=== PATIENT | male | born 1960 | race Caucasian/White ===

== ENCOUNTER 2016-12-05 01:16 | Emergency (ER) | payer SELFPAY ==
[2016-12-05] MEDS ORDERED: DIPHENHYDRAMINE HCL 50 MG/ML VIAL IM ONE (01:39)
[2016-12-05] MEDS ORDERED: LORAZEPAM INJ 2 MG/1 ML VIAL IV ONE (01:39)
[2016-12-05] MEDS ORDERED: HALOPERIDOL LACTATE INJ 5 MG/1 ML VIAL IM ONE (01:41)
--- NOTE | 2016-12-05 01:58 | ER Document Report ---
ED General - General Stated Complaint: PSYCH PROBLEM Mode of Arrival: Ambulatory Information source: Patient, Law Enforcement Cannot obtain history due to: Uncooperative, Altered mental status Notes: This is a 56-year-old male with a history of alcohol and substance abuse who presents via law enforcement. Reportedly the patient was combative prior to arrival and also threatening suicide with a loaded gun. History is limited secondary to lack of patient cooperation. Chart review reveals prior visits for alcohol intoxication, withdrawal, and prior IVC events. TRAVEL OUTSIDE OF THE [place] IN LAST 30 DAYS: No - Related Data Allergies/Adverse Reactions: Iodinated Contrast Media - Oral and [IV Dye, Iodine Containing] Allergy (Mild, Verified 06/07/16 10:41) Hives Penicillins Allergy (Unknown, Verified 06/07/16 10:41) Unknown reaction Past Medical History - Social History Smoking Status: Unknown if Ever Smoked Frequency of alcohol use: Heavy Drug Abuse: Other - unknown Family History: Reviewed & Not Pertinent, CAD - Father with AL at 86 years old. Pulmonary Medical History: Reports: Hx Bronchitis Neurological Medical History: Reports: Hx Seizures - From alcohol abuse from DTs Endocrine Medical History: Reports: Hx Hypothyroidism GI Medical History: Reports: Hx Gastroesophageal Reflux Disease, Hx Ulcer Musculoskeltal Medical History: Psychiatric Medical History: Reports: Hx Anxiety, Hx Depression Traumatic Medical History: Reports: Hx Fractures Past Surgical History: Reports: Hx Appendectomy - 1974 - Immunizations Hx Diphtheria, Pertussis, Tetanus Vaccination: Yes Review of Systems - Review of Systems -: Yes ROS unobtainable due to patient's medical condition Physical Exam - Vital signs Vitals: Temp Pulse Resp BP Pulse Ox 97.3 F 88 17 117/83 99 12/05/16 01:26 12/05/16 01:26 12/05/16 01:26 12/05/16 01:26 12/05/16 01:26 - Notes Notes: PHYSICAL EXAMINATION: GENERAL: Alert, agitated and angry, yelling expletives at law enforcement HEAD: Atraumatic, normocephalic. EYES: Pupils equal round and reactive to light, extraocular movements intact, sclera anicteric ENT: Moist mucous membranes. NECK: Normal range of motion, supple without lymphadenopathy LUNGS: Breath sounds clear to auscultation bilaterally and equal. No wheezes rales or rhonchi. HEART: Regular rate and rhythm without murmurs ABDOMEN: Soft, nontender, normoactive bowel sounds. No guarding, no rebound. No masses appreciated. EXTREMITIES: Normal range of motion NEUROLOGICAL: Cranial nerves grossly intact. Normal speech. Exam limited by patient cooperation, no obvious focal motor deficits. PSYCH: agitated and angry, not cooperative, thrashing and combative. Course - Re-evaluation Re-evalutation: 12/05/16 04:47 Patient initially presented via law enforcement and was combative and certainly appeared to be a danger to himself, not allowing evaluation and not cooperating with verbal instructions. As such, in order to ensure his own safety, he was initially placed in physical restraints. Medication administered for agitation (benadryl, ativan, haldol) with good response, pt resting comfortably and restraints were removed. He remained hemodynamically stable. Labs significant for alcohol intoxication. Still awaiting urine for UA and UDS. Pt medically stable and will be evaluated by mental health team later this morning. - Vital Signs Vital signs: Temp Pulse Resp BP Pulse Ox 97.3 F 88 17 117/83 99 12/05/16 01:26 12/05/16 01:26 12/05/16 01:26 12/05/16 01:26 12/05/16 01:26 - Laboratory Result Diagrams: 12/05/16 01:50 12/05/16 01:50 Laboratory results interpreted by me: 12/05/16 12/05/16 01:50 01:50 RDW 14.2 H Seg Neutrophils % 40.8 L Lymphocytes % 49.9 H Sodium 152.7 H Anion Gap 21 H Total Protein 8.4 H Albumin 5.1 H Salicylates < 1.0 L Acetaminophen < 10 L Serum Alcohol 316 H* Discharge - Discharge Clinical Impression: Suicidal ideation, Hypernatremia Alcohol intoxication Qualifiers: Complication of substance-induced condition: with unspecified complication Qualified Code(s): F10.129 - Alcohol abuse with intoxication, unspecified Condition: Stable Disposition: PSYCH HOSP/UNIT
[2016-12-05 02:03] LABS: ABSOLUTE BASOPHILS # (AUTO) 0.1 10^3/uL (0.0-0.2); ABSOLUTE EOSINOPHILS # (AUTO) 0.2 10^3/uL (0.0-0.6); ABSOLUTE LYMPHOCYTES (AUTO) 3.4 10^3/uL (0.5-4.7); ABSOLUTE MONOCYTES (AUTO) 0.3 10^3/uL (0.1-1.4); ABSOLUTE NEUT (AUTO) 2.8 10^3/uL (1.7-8.2); BASOPHILS % (AUTO) 0.7 % (0-2); EOSINOPHILS % (AUTO) 3.6 % (0-6); HEMATOCRIT 46.1 % (37.9-51.0); HGB HCT DIFFERENCE 1.9; LYMPHOCYTES % (AUTO) 49.9 % (13-45); MEAN CORPUSCULAR HEMOGLOBIN 32.4 pg (27.0-33.4); MEAN CORPUSCULAR HGB CONC 34.8 g/dL (32.0-36.0); MEAN CORPUSCULAR VOLUME 93 fl (80-97); RED BLOOD COUNT 4.94 10^6/uL (4.35-5.55); RED CELL DISTRIBUTION WIDTH 14.2 % (11.5-14.0); SEGMENTED NEUTROPHILS % (AUTO) 40.8 % (42-78); WHITE BLOOD COUNT 6.8 10^3/uL (4.0-10.5)
[2016-12-05 02:21] LABS: ALANINE AMINOTRANSFERASE 31 U/L (21-72); ALBUMIN 5.1 g/dL (3.5-5.0); ALKALINE PHOSPHATASE 61 U/L (38-126); ASPARTATE AMINO TRANSFERASE 30 U/L (17-59); BILIRUBIN,DIRECT 0.4 mg/dL (0.0-0.4); BILIRUBIN,TOTAL 0.5 mg/dL (0.2-1.3); BLOOD UREA NITROGEN 16 mg/dL (7-20); CALCIUM 10.2 mg/dL (8.4-10.2); CREATININE RESULT 1.09 mg/dL (0.52-1.25); GLUCOSE 92 mg/dL (75-110); TOTAL PROTEIN 8.4 g/dL (6.3-8.2)
[2016-12-05 02:31] LABS: CARBON DIOXIDE 25 mmol/L (22-30); CHLORIDE 107 mmol/L (98-107); POTASSIUM 4.1 mmol/L (3.6-5.0); SODIUM 152.7 mmol/L (137-145)
[2016-12-05 02:32] LABS: ANION GAP 21 (5-19)
[2016-12-05 02:33] LABS: ALCOHOL 316 mg/dL (NONE DETECTED)
--- NOTE | 2016-12-05 08:30 | EKG REPORT ---
SEVERITY:- BORDERLINE ECG - SINUS RHYTHM NONSPECIFIC ST-T CHANGES LATERAL LEADS : Confirmed by: Santos Enriquez MD 05-Dec-2016 08:29:46
--- NOTE | 2016-12-05 11:09 | ER Document Report ---
Doctor's Note Notes: 12/05/16 11:07 Medical rounds: Chart reviewed and patient interviewed briefly. Patient denies somatic complaints. Vital signs are stable. Laboratory values normal except for elevated alcohol levels. Patient is alert, oriented, and coherent. He is medically stable pending evaluation by psych.
[2016-12-05 12:04] LABS: APPEARANCE,URINE CLEAR; BILIRUBIN,URINE NEGATIVE (NEGATIVE); GLUCOSE, URINE NEGATIVE (NEGATIVE); KETONES,URINE NEGATIVE (NEGATIVE); LEUKOCYTE ESTERASE,URINE NEGATIVE (NEGATIVE); NITRITE,URINE NEGATIVE (NEGATIVE); PROTEIN,URINE NEGATIVE (NEGATIVE); UROBILINOGEN,URINE NEGATIVE mg/dL (<2.0)
[2016-12-05 12:21] LABS: URINE BARBITURATES SCREEN NEGATIVE; URINE METHADONE SCREEN NEGATIVE; URINE OPIATES LOW NEGATIVE; URINE PHENCYCLIDINE SCREEN NEGATIVE
--- NOTE | 2016-12-06 10:06 | ER Document Report ---
Doctor's Note Notes: 12/06/16 10:05 As the rounding physician this AM, I assessed the patient's labs, vitals, and records. No concerning findings this morning. Patient denies any acute complaints. Patient is cleared for disposition by psychiatry 12/06/16 10:06
--- NOTE | 2016-12-06 11:34 | PSYCHOLOGICAL NOTE ---
Psych Note - Psych Note Psych Note: This is a 56-year-old male with a history of alcohol and substance abuse who presents via law enforcement. Reportedly the patient was combative prior to arrival and also threatening suicide with a loaded gun. History is limited secondary to lack of patient cooperation. Chart review reveals prior visits for alcohol intoxication, withdrawal, and prior IVC events. Patient denies suicidal and homicidal ideation disclosing he was drinking. He continued to disclose "I wasn't doing anything." he then stated he only drinks occasionally. Patient has anxiety and "low thyroid." he denies any previous suicidal attempts. Patient is semi-alert and orientated to person, place. Mood is dysphoric with flat affect. Patient denies suicidal and homicidal ideation. Patient denies auditory and visual hallucinations; patient is not demonstrating behaviour what would be congruent to responding to internal stimuli. No delusions are noted. Thought process is organized and linear. converstaional speech is halting and low. Patient kept eyes closed throughout evaluation. Intellectual abilities appear to be within average range. Attention and concentration is poor. Insight, judgment, and impulse control is poor. 303.90 (F10.20) alcohol-related disorder; moderate per history Impression\\plan: Patient is recommended to continue under IVC. Patient is currently demonstrating minimal engagement with clinician. Patient has history of alcoholism resulting in multiple previous visits to this department. Patient will be reevaluated. Dr. Simmons was consulted on care and management of this patient. Attending physician is in agreement with recommendations and disposition.
--- NOTE | 2016-12-06 11:42 | PSYCHOLOGICAL NOTE ---
Psych Note - Psych Note Psych Note: This is a 56-year-old male with a history of alcohol and substance abuse who presents via law enforcement. Reportedly the patient was combative prior to arrival and also threatening suicide with a loaded gun. History is limited secondary to lack of patient cooperation. Chart review reveals prior visits for alcohol intoxication, withdrawal, and prior IVC events. Patient disclosed that he has been fighting alcoholism and that he was 9 months sober but relapsed. (Clinician notes patient was seen approximate 6 months ago for alcohol intoxication). Patient disclosed that he has been not attending AA every day like he should. He continued disclosed that he does see Dr. Medeiros in [place], [place]. He continued disclosed that he does take care of his parents and knows he needs to stay sober. He continued just disclose that he knows he said and did things that were "inappropriate" while he was drinking but has little memory of what happened. Patient is alert and orientated to person, place, time and circumstance. Mood is euthymic with congruent affect. Patient denies suicidal and homicidal ideation. Patient denies auditory and visual hallucinations; patient is not demonstrating behaviour what would be congruent to responding to internal stimuli. No delusions are noted. Thought process is organized and linear. Conversational speech was within normal rate tone and prosody. Eye contact was well maintained. Intellectual abilities appear to be within average range. Attention and concentration is good. Insight, judgment, and impulse control is fair. 303.90 (F10.20) alcohol-related disorder; moderate per history Impression\\plan: Patient is recommended for rescind is considered psychiatrically cleared for discharge. Patient has a long history of alcoholism resulting in visits in this department; approximately 6 months reportedly sober. Patient disclosed that he had a relapse and obviously did and said things that were "inappropriate." Patient disclosed he uses AA to assist with sobriety. Dr. Simmons was consulted on care and management of this patient. Attending physician is in agreement with recommendations and disposition.
[2016-12-06 13:12] VITALS: BP 136/82
== END 2016-12-06 13:14 | disposition home or self-care (01) ==
LOC: ER 01:16
DX: R45.851 Suicidal ideations (principal); E87.0 Hyperosmolality and hypernatremia; F10.129 Alcohol abuse with intoxication, unspecified; K21.9 Gastro-esophageal reflux disease without esophagitis; R45.1 Restlessness and agitation; E03.9 Hypothyroidism, unspecified; Z78.1 Physical restraint status; Z88.0 Allergy status to penicillin
CPT/HCPCS: 93005; 99285; 96372; 96374; 36415; 80307 ×4; 85025; 80053; 81001; 93010; J1200; J1630; J2060

== ENCOUNTER 2018-08-24 12:48 | Observation (INO) | payer SELFPAY ==
[2018-08-24] MEDS ORDERED: ASPIRIN 81 MG TABLET, CHEWABLE PO ONE (13:43)
--- NOTE | 2018-08-24 13:45 | ER Document Report ---
ED Medical Screen (RME) - General Chief Complaint: Chest Pressure Stated Complaint: CHEST PRESSURE Time Seen by Provider: 08/24/18 13:42 Mode of Arrival: Ambulatory Information source: Patient Notes: This is a 57-year-old man with a history of severe anxiety, alcohol and substance abuse who presents to the emergency room with retrosternal chest pressure on and off for the past few days. He states it has been worse lately. Patient does smoke cigarettes. He was concerned about his heart but he was not sure whether this is his anxiety peer he does want to avoid all narcotics given his history. TRAVEL OUTSIDE OF THE [place] IN LAST 30 DAYS: No - Related Data Allergies/Adverse Reactions: Iodinated Contrast- Oral and IV Dye [IV Dye, Iodine Containing] Allergy (Mild, Verified 08/24/18 12:50) Hives Penicillins Allergy (Unknown, Verified 08/24/18 12:50) Unknown reaction Past Medical History Pulmonary Medical History: Reports: Hx Bronchitis Neurological Medical History: Reports: Hx Seizures - From alcohol abuse from DTs Endocrine Medical History: Reports: Hx Hypothyroidism GI Medical History: Reports: Hx Gastroesophageal Reflux Disease, Hx Pancreatitis - 09/15, Hx Ulcer Musculoskeltal Medical History: Psychiatric Medical History: Reports: Hx Anxiety, Hx Depression Traumatic Medical History: Reports: Hx Fractures Past Surgical History: Reports: Hx Appendectomy - 1974 - Immunizations Hx Diphtheria, Pertussis, Tetanus Vaccination: Yes Physical Exam - Vital signs Vitals: Temp Pulse Resp BP Pulse Ox 97.9 F 72 16 137/86 H 100 08/24/18 13:01 08/24/18 13:01 08/24/18 13:01 08/24/18 13:01 08/24/18 13:01 Course - Vital Signs Vital signs: Temp Pulse Resp BP Pulse Ox 97.9 F 72 16 137/86 H 100 08/24/18 13:01 08/24/18 13:01 08/24/18 13:01 08/24/18 13:01 08/24/18 13:01
[2018-08-24 14:11] LABS: ABSOLUTE EOSINOPHILS # (AUTO) 0.1 10^3/uL (0.0-0.6); ABSOLUTE LYMPHOCYTES (AUTO) 1.6 10^3/uL (0.5-4.7); ABSOLUTE MONOCYTES (AUTO) 0.3 10^3/uL (0.1-1.4); ABSOLUTE NEUT (AUTO) 3.5 10^3/uL (1.7-8.2); BASOPHILS % (AUTO) 0.4 % (0-2); EOSINOPHILS % (AUTO) 2.1 % (0-6); HEMATOCRIT 43.5 % (37.9-51.0); LYMPHOCYTES % (AUTO) 28.6 % (13-45); MEAN CORPUSCULAR HEMOGLOBIN 33.2 pg (27.0-33.4); MEAN CORPUSCULAR HGB CONC 34.5 g/dL (32.0-36.0); MEAN CORPUSCULAR VOLUME 96 fl (80-97); MONOCYTES % (AUTO) 5.9 % (3-13); PLATELET COUNT 212 10^3/uL (150-450); RED BLOOD COUNT 4.52 10^6/uL (4.35-5.55); RED CELL DISTRIBUTION WIDTH 13.8 % (11.5-14.0); TOTAL CELLS COUNTED % (AUTO) 100 %; WHITE BLOOD COUNT 5.6 10^3/uL (4.0-10.5)
[2018-08-24 14:32] LABS: ALANINE AMINOTRANSFERASE 27 U/L (21-72); ALBUMIN 5.1 g/dL (3.5-5.0); ALKALINE PHOSPHATASE 53 U/L (38-126); ANION GAP 9 (5-19); ASPARTATE AMINO TRANSFERASE 31 U/L (17-59); BILIRUBIN,DIRECT 0.3 mg/dL (0.0-0.4); BILIRUBIN,TOTAL 0.4 mg/dL (0.2-1.3); BLOOD UREA NITROGEN 15 mg/dL (7-20); CALCIUM 10.1 mg/dL (8.4-10.2); CARBON DIOXIDE 28 mmol/L (22-30); CHLORIDE 98 mmol/L (98-107); CREATINE KINASE 195 U/L (55-170); GLUCOSE 100 mg/dL (75-110); POTASSIUM 4.5 mmol/L (3.6-5.0); SODIUM 135.4 mmol/L (137-145); TOTAL PROTEIN 7.9 g/dL (6.3-8.2)
[2018-08-24 14:45] LABS: TROPONIN I < 0.012 ng/mL
--- NOTE | 2018-08-24 15:16 | RADIOLOGY REPORT (SQ) ---
EXAM DESCRIPTION: CHEST SINGLE VIEW COMPLETED DATE/TIME: 08/24/2018 2:41 pm REASON FOR STUDY: chest pain COMPARISON: 06/10/2016 EXAM PARAMETERS: NUMBER OF VIEWS: One view. TECHNIQUE: Single frontal radiographic view of the chest acquired. RADIATION DOSE: NA LIMITATIONS: None. FINDINGS: LUNGS AND PLEURA: No opacities, masses or pneumothorax. No pleural effusion. MEDIASTINUM AND HILAR STRUCTURES: No masses. Contour normal. HEART AND VASCULAR STRUCTURES: Heart normal in size. Normal vasculature. BONES: No acute findings. HARDWARE: None in the chest. OTHER: No other significant finding. IMPRESSION: 1. No significant interval changes since the previous examination dated 06/10/2016. No acute findings. TECHNICAL DOCUMENTATION: JOB ID: [id number] [employer]- All Rights Reserved Reading location - IP/workstation name: [email or web address]
[2018-08-24 15:29] LABS: FREE T4 (FREE THYROXINE) 1.22 ng/dL (0.78-2.19)
[2018-08-24 15:30] LABS: FREE T3 3.52 pg/mL (2.77-5.27); THYROID STIMULATING HORMONE 2.09 uIU/mL (0.47-4.68)
[2018-08-24] MEDS ORDERED: CLONAZEPAM 1 MG TABLET PO ONE (16:45)
[2018-08-24] MEDS ORDERED: IPRATROPIUM/ALBUTEROL 0.5-2.5 MG/3 ML AMPUL NEB ONE (16:45)
[2018-08-24] MEDS ORDERED: ACETAMINOPHEN 650 MG SUPP.RECT PR PRN (18:20)
[2018-08-24] MEDS ORDERED: LEVALBUTEROL HCL NEB 0.63 MG/3 ML AMPUL NEB PRN (18:20)
[2018-08-24] MEDS ORDERED: ONDANSETRON HCL INJ/PF 4 MG/2 ML SDV IV PRN (18:20)
[2018-08-24] MEDS ORDERED: MORPHINE SULFATE 10 MG/ML INJ IV PRN (18:33)
--- NOTE | 2018-08-24 18:38 | EKG REPORT ---
SEVERITY:- NORMAL ECG - SINUS RHYTHM : Confirmed by: Beth Boykin MD 24-Aug-2018 18:36:58
--- NOTE | 2018-08-24 19:02 | PDOC H&P ---
History of Present Illness Admission Date/PCP: 08/24/18 18:35 Patient complains of: Chest pain History of Present Illness: KING ELIZALDE is a 57 year old male with history of anxiety, depression, history of heavy alcohol abuse stopped drinking 3 months ago chronic smoker came to the emergency room with complaints of chest pains on and off for the last 3-4 days. Chest pains worsen today according to the patient. Chest pain as per the patient retrosternal localized pain scale is 7 x 10 on and off pain lasting for a few minutes associated with nausea denies any sweating denies any headaches chest pain is easing off with taking rest came to the emergency room for further evaluation. He is also admitting he is under a lot of stress. He quit drinking 3 months ago went back to work and he is a heavy drinker before he had a hard time adjusting to the new job when the time he had alcohol in the last 3 months his glass of wine couple of days ago because of increasing stress and anxiety. Patient is also saying he is depressed agreed to see the psychiatrist while he was in the hospital. The workup was done by the ER physician he was given aspirin in the ER and troponins are normal and the EKG was normal so far. Medical consult was called for possible admission. Went to talk to the patient patient is looks mildly anxious not agitated and alert and awake communicating very well. Patient wants to be full code. Past Medical History Pulmonary Medical History: Reports: Bronchitis Neurological Medical History: Reports: Seizures - From alcohol abuse from DTs Endocrine Medical History: Reports: Hypothyroidism GI Medical History: Reports: Gastroesophageal Reflux Disease Psychiatric Medical History: Reports: Depression, General Anxiety Disorder Past Surgical History Past Surgical History: Reports: Appendectomy - 1974 Social History Smoking Status: Current Every Day Smoker Frequency of Alcohol Use: Rare Hx Recreational Drug Use: No Hx Prescription Drug Abuse: No - Advance Directive Resuscitation Status: Full Code Family History Family History: Reviewed & Not Pertinent, CAD - Father with CA at 86 years old. Parental Family History Reviewed: Yes - Family history of heart disease father has a CABG Children Family History Reviewed: Yes Sibling(s) Family History Reviewed.: Yes Medication/Allergy Home Medications: Venlafaxine HCl [Effexor 75 mg Tablet] 75 mg PO DAILY 12/05/16 Allergies/Adverse Reactions: Iodinated Contrast- Oral and IV Dye [IV Dye, Iodine Containing] Allergy (Mild, Verified 08/24/18 12:50) Hives Penicillins Allergy (Unknown, Verified 08/24/18 12:50) Unknown reaction Review of Systems Constitutional: ABSENT: fever(s), headache(s) Eyes: ABSENT: visual disturbances Ears: ABSENT: hearing changes Nose, Mouth, and Throat: ABSENT: sore throat Respiratory: ABSENT: cough, dyspnea, hemoptysis Gastrointestinal: PRESENT: nausea Neurological: ABSENT: abnormal gait, abnormal speech, confusion, dizziness, focal weakness, syncope Psychiatric: ABSENT: anxiety, depression, homidical ideation, suicidal ideation Physical Exam Vital Signs: Temp Pulse Resp BP Pulse Ox 97.9 F 72 12 139/93 H 100 08/24/18 13:01 08/24/18 13:01 08/24/18 16:01 08/24/18 16:01 08/24/18 16:01 Intake & Output 08/23/18 08/24/18 08/25/18 06:59 06:59 06:59 Weight 73.5 kg General appearance: PRESENT: no acute distress Head exam: PRESENT: atraumatic Eye exam: PRESENT: PERRLA Mouth exam: PRESENT: moist Neck exam: ABSENT: carotid bruit, JVD, lymphadenopathy, thyromegaly Respiratory exam: PRESENT: decreased breath sounds, wheezes GI/Abdominal exam: PRESENT: normal bowel sounds, soft. ABSENT: distended, guarding, mass, organolmegaly, rebound, tenderness Extremities exam: PRESENT: full ROM. ABSENT: calf tenderness, clubbing, pedal edema Neurological exam: PRESENT: alert, awake, oriented to person, oriented to place, oriented to time, oriented to situation, CN II-XII grossly intact. ABSENT: motor sensory deficit Psychiatric exam: PRESENT: appropriate affect, normal mood. ABSENT: homicidal ideation, suicidal ideation Results Laboratory Results: 08/24/18 13:53 08/24/18 13:53 08/24/18 08/24/18 08/24/18 13:53 13:53 13:53 WBC 5.6 RBC 4.52 Hgb 15.0 Hct 43.5 MCV 96 MCH 33.2 MCHC 34.5 RDW 13.8 Plt Count 212 Seg Neutrophils % 63.0 Lymphocytes % 28.6 Monocytes % 5.9 Eosinophils % 2.1 Basophils % 0.4 Absolute Neutrophils 3.5 Absolute Lymphocytes 1.6 Absolute Monocytes 0.3 Absolute Eosinophils 0.1 Absolute Basophils 0.0 Sodium 135.4 L Potassium 4.5 Chloride 98 Carbon Dioxide 28 Anion Gap 9 BUN 15 Creatinine 1.19 Est GFR ( Amer) > 60 Est GFR (Non-Af Amer) > 60 Glucose 100 Calcium 10.1 Total Bilirubin 0.4 AST 31 ALT 27 Alkaline Phosphatase 53 Total Protein 7.9 Albumin 5.1 H TSH 2.09 Free T4 1.22 Free T3 pg/mL 3.52 08/24/18 08/24/18 13:53 13:53 Creatine Kinase 195 H CK-MB (CK-2) 1.80 Troponin I < 0.012 Impressions: Chest X-Ray 08/24/18 13:43 IMPRESSION: 1. No significant interval changes since the previous examination dated 06/10/2016. No acute findings. Assessment & Plan - Diagnosis (1) Chest pain Qualifiers: Chest pain type: unspecified Qualified Code(s): R07.9 - Chest pain, unspecified Is this a current diagnosis for this admission?: Yes Plan: 08/24/2018-patient is admitted for chest pain probably secondary to anxiety disorder. He was placed in telemetry for observation cardiac enzymes x3 were requested. Started on aspirin, atorvastatin, morphine 1 mg IV every 4 as needed for chest pain. He was also placed on oxygen 2 L nasal cannula. Placed on Lovenox 40 mg subcu daily. Lipid panel was requested for tomorrow morning. Stress test was requested for tomorrow. (2) Smoker Is this a current diagnosis for this admission?: Yes Plan: 08/24/2018-patient is a chronic smoker smoking for the last 48 years. Smokes more than 1 pack/day. Nicotine patch was placed. (3) Depression Is this a current diagnosis for this admission?: Yes Plan: 08/24/2018 patient given the history of depression he was in Effexor at home plan is to restart the Effexor patient is also agreed to see the psychiatrist. (4) History of alcohol abuse Is this a current diagnosis for this admission?: Yes Plan: 08/24/2018-patient has history of for heavy alcohol use he stopped 3 months ago drinking the last drink he has few days ago he said a small glass of wine. pt Was started on Ativan 1 mg p.o. every 6 hours. We to watch for DTs. (5) Hypothyroidism Is this a current diagnosis for this admission?: Yes Plan: 08/24/2018-patient is given the history of hypothyroidism on levothyroxine at home he did not remember the dose. I started him on levothyroxine 25 mcg p.o. daily. Plan to check the TSH levels tomorrow morning. - Time Time Spent: 50 to 70 Minutes Smoking Cessation Education: over 10 minutes Medications reviewed and adjusted accordingly: Yes Anticipated discharge: Home
[2018-08-24 19:21] LABS: TROPONIN I < 0.012 ng/mL
[2018-08-24] MEDS ORDERED: NICOTINE 14 MG/24 HR PATCH.TD24 TD ONE (19:30)
[2018-08-24 19:32] LABS: URINE BARBITURATES SCREEN NEGATIVE; URINE BENZODIAZEPINES SCREEN NEGATIVE; URINE COCAINE SCREEN NEGATIVE; URINE MARIJUANA (THC) SCREEN NEGATIVE; URINE METHADONE SCREEN NEGATIVE; URINE PHENCYCLIDINE SCREEN NEGATIVE
[2018-08-24] MEDS: LORAZEPAM 1 MG TABLET PO PRN (19:34)
[2018-08-24 19:36] LABS: ALCOHOL < 10 mg/dL (NONE DETECTED)
--- NOTE | 2018-08-24 21:37 | ER Document Report ---
Entered by NINA RAMÍREZ SCRIBE 08/24/18 4039 Acting as scribe for:ZACARIAS BAUTISTA DO ED General - General Chief Complaint: Chest Pressure Stated Complaint: CHEST PRESSURE Time Seen by Provider: 08/24/18 13:42 Mode of Arrival: Ambulatory Information source: Patient Notes: Patient is a 57 year old male with anxiety, depression and a history of alcoholism presents to the emergency department complaining of chest pain onset this morning. Patient states he began to have severe chest pressure followed by numbness and tingling sensations in the arms, shortness of breath and disorientation. Patient states he has been under a lot of stress this month and has been feeling very anxious. He states he struggles with alcoholism and struggled with narcotic abuse. He states he has not abused alcohol or prescription drugs for several months now. Patient does not have a PCP and has not seen a provider in a few years. TRAVEL OUTSIDE OF THE [place] IN LAST 30 DAYS: No - Related Data Allergies/Adverse Reactions: Iodinated Contrast- Oral and IV Dye [IV Dye, Iodine Containing] Allergy (Mild, Verified 08/24/18 12:50) Hives Penicillins Allergy (Unknown, Verified 08/24/18 12:50) Unknown reaction Past Medical History - General Information source: Patient - Social History Smoking Status: Current Every Day Smoker Chew tobacco use (# tins/day): No Frequency of alcohol use: intermittent heavy use Drug Abuse: None Family History: Reviewed & Not Pertinent, CAD - Father with [place] at 86 years old. Patient has suicidal ideation: No Patient has homicidal ideation: No Pulmonary Medical History: Reports: Hx Bronchitis Neurological Medical History: Reports: Hx Seizures - From alcohol abuse from DTs Endocrine Medical History: Reports: Hx Hypothyroidism GI Medical History: Reports: Hx Gastroesophageal Reflux Disease, Hx Pancreatitis - 09/15, Hx Ulcer Musculoskeletal Medical History: Psychiatric Medical History: Reports: Hx Anxiety, Hx Depression Traumatic Medical History: Reports: Hx Fractures Past Surgical History: Reports: Hx Appendectomy - 1974 - Immunizations Hx Diphtheria, Pertussis, Tetanus Vaccination: Yes Review of Systems - Review of Systems Constitutional: No symptoms reported EENT: No symptoms reported Cardiovascular: See HPI, Chest pain Respiratory: See HPI, Short of breath Gastrointestinal: No symptoms reported Genitourinary: No symptoms reported Musculoskeletal: No symptoms reported Skin: No symptoms reported Hematologic/Lymphatic: No symptoms reported Neurological/Psychological: See HPI, Confusion, Numbness, Tingling -: Yes All other systems reviewed and negative Physical Exam - Vital signs Vitals: Temp Pulse Resp BP Pulse Ox 97.9 F 72 16 137/86 H 100 08/24/18 13:01 08/24/18 13:01 08/24/18 13:01 08/24/18 13:01 08/24/18 13:01 Interpretation: Normal - Notes Notes: GENERAL: Alert, interacts well. No acute distress. HEAD: Normocephalic, atraumatic. EYES: Pupils equal, round, and reactive to light. Extraocular movements intact. ENT: Oral mucosa moist, tongue midline. NECK: Full range of motion. Supple. Trachea midline. LUNGS: Wheezes. No rales or rhonchi. No respiratory distress. HEART: Regular rate and rhythm. No murmurs, gallops, or rubs. ABDOMEN: Soft, non-tender. Non-distended. Bowel sounds present in all 4 quadrants. EXTREMITIES: Moves all 4 extremities spontaneously. NEUROLOGICAL: Alert and oriented x3. Normal speech. PSYCH: Normal affect, normal mood, but intermittently becomes flushed and anxious when discussing plan to be admitted to the hospital. SKIN: Warm, dry, normal turgor. No rashes or lesions noted. Course - Re-evaluation Re-evalutation: 08/24/18 18:03 CBC unremarkable, CMP unremarkable, cardiac enzymes negative x1, thyroid function studies negative, chest x-ray shows no acute process. EKG is nonischemic. Patient does have several risk factors including age, family history and smoking. Patient was discussed with Dr. Conroy who accepts the patient in observation status to his service for chest pain rule out. Patient is currently chest pain-free. 08/24/18 18:04 Patient also has a strong personal history of anxiety, anxiety is being treated temporarily with Klonopin. 08/24/18 18:05 - Vital Signs Vital signs: Temp Pulse Resp BP Pulse Ox 97.9 F 72 12 139/93 H 100 08/24/18 13:01 08/24/18 13:01 08/24/18 16:01 08/24/18 16:01 08/24/18 16:01 - Laboratory Result Diagrams: 08/24/18 13:53 08/24/18 13:53 Laboratory results interpreted by me: 08/24/18 13:53 Sodium 135.4 L Creatine Kinase 195 H Albumin 5.1 H - EKG Interpretation by Me Additional EKG results interpreted by me: 08/24/18 18:05 EKG shows sinus rhythm at a rate of 71, normal axis, normal, no ST segment patient's or depressions, there is T wave flattening in aVL and biphasic T waves in V2 per my interpretation. Discharge - Discharge Clinical Impression: Chest pain, rule out acute myocardial infarction Condition: Fair Disposition: ADMITTED OBSERVATION [facility] Admitted: Telemetry Scribe Attestation: 08/24/18 21:37 I personally performed the services described in the documentation, reviewed and edited the documentation which was dictated to the scribe in my presence, and it accurately records my words and actions. I personally performed the services described in the documentation, reviewed and edited the documentation which was dictated to the scribe in my presence, and it accurately records my words and actions.
[2018-08-24] MEDS ORDERED: TEMAZEPAM 7.5 MG CAPSULE PO SCH (22:00)
[2018-08-24] MEDS: FAMOTIDINE 20 MG TABLET PO SCH (22:09)
[2018-08-25] MEDS: LORAZEPAM 1 MG TABLET PO PRN ×2 (00:13→08:23)
[2018-08-25 01:17] LABS: CREATINE KINASE MB 1.23 ng/mL (<4.55)
[2018-08-25 01:21] LABS: TROPONIN I < 0.012 ng/mL
[2018-08-25] MEDS ORDERED: LEVOTHYROXINE SODIUM 0.025 MG TABLET PO SCH (06:00)
[2018-08-25 07:50] LABS: ABSOLUTE EOSINOPHILS # (AUTO) 0.2 10^3/uL (0.0-0.6); ABSOLUTE LYMPHOCYTES (AUTO) 1.6 10^3/uL (0.5-4.7); ABSOLUTE MONOCYTES (AUTO) 0.4 10^3/uL (0.1-1.4); ABSOLUTE NEUT (AUTO) 3.3 10^3/uL (1.7-8.2); BASOPHILS % (AUTO) 0.4 % (0-2); EOSINOPHILS % (AUTO) 3.1 % (0-6); HEMATOCRIT 42.4 % (37.9-51.0); HEMOGLOBIN 14.6 g/dL (13.5-17.0); LYMPHOCYTES % (AUTO) 29.6 % (13-45); MEAN CORPUSCULAR HEMOGLOBIN 33.1 pg (27.0-33.4); MEAN CORPUSCULAR HGB CONC 34.4 g/dL (32.0-36.0); MEAN CORPUSCULAR VOLUME 96 fl (80-97); MONOCYTES % (AUTO) 7.1 % (3-13); PLATELET COUNT 223 10^3/uL (150-450); RED CELL DISTRIBUTION WIDTH 13.6 % (11.5-14.0); SEGMENTED NEUTROPHILS % (AUTO) 59.8 % (42-78); TOTAL CELLS COUNTED % (AUTO) 100 %; WHITE BLOOD COUNT 5.5 10^3/uL (4.0-10.5)
--- NOTE | 2018-08-25 07:56 | EKG REPORT ---
SEVERITY:- NORMAL ECG - SINUS RHYTHM : Confirmed by: Beth Boykin MD 25-Aug-2018 07:55:30
[2018-08-25 08:10] LABS: ALANINE AMINOTRANSFERASE 24 U/L (21-72); ALBUMIN 4.7 g/dL (3.5-5.0); ALKALINE PHOSPHATASE 51 U/L (38-126); ANION GAP 9 (5-19); ASPARTATE AMINO TRANSFERASE 26 U/L (17-59); BILIRUBIN,DIRECT 0.3 mg/dL (0.0-0.4); BILIRUBIN,TOTAL 0.3 mg/dL (0.2-1.3); BLOOD UREA NITROGEN 14 mg/dL (7-20); CALCIUM 9.8 mg/dL (8.4-10.2); CARBON DIOXIDE 29 mmol/L (22-30); CHLORIDE 103 mmol/L (98-107); CHOLESTEROL 191.98 mg/dL (0-200); CREATINE KINASE 107 U/L (55-170); GLUCOSE 93 mg/dL (75-110); POTASSIUM 4.9 mmol/L (3.6-5.0); SODIUM 140.5 mmol/L (137-145); TOTAL PROTEIN 7.2 g/dL (6.3-8.2); TRIGLYCERIDES 78 mg/dL (<150)
[2018-08-25 08:21] LABS: DIRECT LDL 104 mg/dL (<100)
[2018-08-25 08:22] LABS: NT PRO BNP 34 pg/mL (5-900)
[2018-08-25 08:25] LABS: TROPONIN I < 0.012 ng/mL
--- NOTE | 2018-08-25 09:59 | PDOC DISCHARGE SUMMARY ---
General - Admit/Disc Date/PCP Admission Date/Primary Care Provider: 08/24/18 18:35 Discharge Date: 08/25/18 - Discharge Diagnosis (1) Chest pain Is this a current diagnosis for this admission?: Yes Summary: 08/24/2018-patient is admitted for chest pain probably secondary to anxiety disorder. He was placed in telemetry for observation cardiac enzymes x3 were requested. Started on aspirin, atorvastatin, morphine 1 mg IV every 4 as needed for chest pain. He was also placed on oxygen 2 L nasal cannula. Placed on Lovenox 40 mg subcu daily. Lipid panel was requested for tomorrow morning. Stress test was requested for tomorrow. 08/25/2018 patient was admitted with chest pain probably secondary to anxiety disorder. Is on troponins are negative. Plan to do arrange for the stress test as an outpatient. Actually the patient was scheduled for stress test today but he had a break was this morning. Requested the patient to stay another day so we can do the stress test tomorrow but the patient wants to go home today. 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 (2) Smoker Is this a current diagnosis for this admission?: Yes Summary: 08/24/2018-patient is a chronic smoker smoking for the last 48 years. Smokes more than 1 pack/day. Nicotine patch was placed. 08/23/2018-patient was a chronic smoker smoking for more than 40 years he smokes close to 1 pack/day. Again smoking counseling was provided for more than 10 minutes. Uncle advised him to quit smoking. (3) Depression Is this a current diagnosis for this admission?: Yes Summary: 08/24/2018 patient given the history of depression he was in Effexor at home plan is to restart the Effexor patient is also agreed to see the psychiatrist. 08/23/2018 patient given the history of anxiety disorder and depression. He is on Effexor at home. The medication was restarted during the hospital stay. Psych evaluation done during the hospital stay. Patient denies any suicidal ideation or thoughts. Patient was advised to follow-up with psychiatrist as an outpatient. (4) History of alcohol abuse Is this a current diagnosis for this admission?: Yes Summary: 08/24/2018-patient has history of for heavy alcohol use he stopped 3 months ago drinking the last drink he has few days ago he said a small glass of wine. pt Was started on Ativan 1 mg p.o. every 6 hours. We to watch for DTs. [id number]-patient is given the history of heavy alcohol use. He keeps drinking 3 months ago. Strongly advised him to not to start drinking alcohol again. Patient agreed. (5) Hypothyroidism Is this a current diagnosis for this admission?: Yes Summary: 08/25/2018-patient is given the history of hypothyroidism on levothyroxine supplementation at home. TSH is 4.18 today. Patient was advised to continue his home medication. - Additional Information Resuscitation Status: Full Code Discharge Diet: Cardiac Discharge Activity: Activity As Tolerated Prescriptions: Atorvastatin Calcium [Lipitor 20 mg Tablet] 20 mg PO DAILY #30 tablet Clonazepam [Klonopin 1 mg Tablet] 1 mg PO TID #15 tablet Home Medications: Venlafaxine HCl [Effexor 75 mg Tablet] 75 mg PO DAILY 12/05/16 Atorvastatin Calcium [Lipitor 20 mg Tablet] 20 mg PO DAILY #30 tablet 08/25/18 Clonazepam [Klonopin 1 mg Tablet] 1 mg PO TID #15 tablet 08/25/18 History of Present Illness History of Present Illness: KING ELIZALDE is a 57 year old male with history of anxiety, depression, history of heavy alcohol abuse stopped drinking 3 months ago chronic smoker came to the emergency room with complaints of chest pains on and off for the last 3-4 days. Chest pains worsen today according to the patient. Chest pain as per the patient retrosternal localized pain scale is 7 x 10 on and off pain lasting for a few minutes associated with nausea denies any sweating denies any headaches chest pain is easing off with taking rest came to the emergency room for further evaluation. He is also admitting he is under a lot of stress. He quit drinking 3 months ago went back to work and he is a heavy drinker before he had a hard time adjusting to the new job when the time he had alcohol in the last 3 months his glass of wine couple of days ago because of increasing stress and anxiety. Patient is also saying he is depressed agreed to see the psychiatrist while he was in the hospital. The workup was done by the ER physician he was given aspirin in the ER and troponins are normal and the EKG was normal so far. Medical consult was called for possible admission. Went to talk to the patient patient is looks mildly anxious not agitated and alert and awake communicating very well. Patient wants to be full code. Physical Exam Vital Signs: Temp Pulse Resp BP Pulse Ox 97.9 F 82 16 104/85 98 08/25/18 09:16 08/25/18 09:16 08/25/18 09:16 08/25/18 09:16 08/25/18 09:16 Intake & Output 08/24/18 08/25/18 08/26/18 06:59 06:59 06:59 Weight 24.4 kg General appearance: PRESENT: no acute distress Head exam: PRESENT: atraumatic Eye exam: PRESENT: PERRLA Neck exam: ABSENT: carotid bruit, JVD, lymphadenopathy, thyromegaly Respiratory exam: PRESENT: clear to auscultation martínez, decreased breath sounds. ABSENT: rales, rhonchi, wheezes Cardiovascular exam: PRESENT: RRR. ABSENT: diastolic murmur, rubs, systolic murmur GI/Abdominal exam: PRESENT: normal bowel sounds, soft. ABSENT: distended, guarding, mass, organolmegaly, rebound, tenderness Extremities exam: PRESENT: full ROM. ABSENT: calf tenderness, clubbing, pedal edema Neurological exam: PRESENT: alert, awake, oriented to person, oriented to place, oriented to time, oriented to situation, CN II-XII grossly intact. ABSENT: motor sensory deficit Psychiatric exam: PRESENT: appropriate affect, normal mood. ABSENT: homicidal ideation, suicidal ideation Results Laboratory Results: 08/25/18 07:33 08/25/18 07:33 08/24/18 08/24/18 08/24/18 13:53 13:53 13:53 WBC 5.6 RBC 4.52 Hgb 15.0 Hct 43.5 MCV 96 MCH 33.2 MCHC 34.5 RDW 13.8 Plt Count 212 Seg Neutrophils % 63.0 Lymphocytes % 28.6 Monocytes % 5.9 Eosinophils % 2.1 Basophils % 0.4 Absolute Neutrophils 3.5 Absolute Lymphocytes 1.6 Absolute Monocytes 0.3 Absolute Eosinophils 0.1 Absolute Basophils 0.0 Sodium 135.4 L Potassium 4.5 Chloride 98 Carbon Dioxide 28 Anion Gap 9 BUN 15 Creatinine 1.19 Est GFR ( Amer) > 60 Est GFR (Non-Af Amer) > 60 Glucose 100 Calcium 10.1 Magnesium Total Bilirubin 0.4 AST 31 ALT 27 Alkaline Phosphatase 53 Total Protein 7.9 Albumin 5.1 H Triglycerides Cholesterol LDL Cholesterol Direct VLDL Cholesterol HDL Cholesterol Prostate Specific Ag TSH 2.09 Free T4 1.22 Free T3 pg/mL 3.52 08/24/18 08/25/18 08/25/18 18:40 07:33 07:33 WBC 5.5 RBC 4.40 Hgb 14.6 Hct 42.4 MCV 96 MCH 33.1 MCHC 34.4 RDW 13.6 Plt Count 223 Seg Neutrophils % 59.8 Lymphocytes % 29.6 Monocytes % 7.1 Eosinophils % 3.1 Basophils % 0.4 Absolute Neutrophils 3.3 Absolute Lymphocytes 1.6 Absolute Monocytes 0.4 Absolute Eosinophils 0.2 Absolute Basophils 0.0 Sodium 140.5 Potassium 4.9 Chloride 103 Carbon Dioxide 29 Anion Gap 9 BUN 14 Creatinine 1.08 Est GFR ( Amer) > 60 Est GFR (Non-Af Amer) > 60 Glucose 93 Calcium 9.8 Magnesium 2.1 Total Bilirubin 0.3 AST 26 ALT 24 Alkaline Phosphatase 51 Total Protein 7.2 Albumin 4.7 Triglycerides 78 Cholesterol 191.98 LDL Cholesterol Direct 104 H VLDL Cholesterol 16.0 HDL Cholesterol 68 Prostate Specific Ag 1.110 TSH Free T4 Free T3 pg/mL 08/25/18 07:33 WBC RBC Hgb Hct MCV MCH MCHC RDW Plt Count Seg Neutrophils % Lymphocytes % Monocytes % Eosinophils % Basophils % Absolute Neutrophils Absolute Lymphocytes Absolute Monocytes Absolute Eosinophils Absolute Basophils Sodium Potassium Chloride Carbon Dioxide Anion Gap BUN Creatinine Est GFR ( Amer) Est GFR (Non-Af Amer) Glucose Calcium Magnesium Total Bilirubin AST ALT Alkaline Phosphatase Total Protein Albumin Triglycerides Cholesterol LDL Cholesterol Direct VLDL Cholesterol HDL Cholesterol Prostate Specific Ag TSH 4.18 Free T4 Free T3 pg/mL 08/24/18 08/24/18 08/24/18 13:53 13:53 18:40 Creatine Kinase 195 H 151 CK-MB (CK-2) 1.80 Troponin I < 0.012 NT-Pro-B Natriuret Pep 08/24/18 08/25/18 08/25/18 18:40 00:44 00:44 Creatine Kinase 121 CK-MB (CK-2) 1.40 1.23 Troponin I < 0.012 < 0.012 NT-Pro-B Natriuret Pep 08/25/18 08/25/18 07:33 07:33 Creatine Kinase 107 CK-MB (CK-2) 1.10 Troponin I < 0.012 NT-Pro-B Natriuret Pep 34 Impressions: Chest X-Ray 08/24/18 13:43 IMPRESSION: 1. No significant interval changes since the previous examination dated 06/10/2016. No acute findings. Qualifiers - * PATIENT BEING DISCHARGED WITH ANY OF THE FOLLOWING DIAGNOSIS: No VTE patient discharged on overlapping Therapy?: Yes
[2018-08-25] MEDS ORDERED: VENLAFAXINE HCL 75 MG TABLET PO SCH (10:00)
[2018-08-25] MEDS ORDERED: ASPIRIN 325 MG TABLET PO SCH (10:00)
[2018-08-25] MEDS ORDERED: LISINOPRIL 10 MG TABLET PO SCH (10:00)
[2018-08-25] MEDS ORDERED: ENOXAPARIN SODIUM INJ 40 MG/0.4 ML DISP.SYRIN SUBCUT SCH (10:00)
[2018-08-25] MEDS ORDERED: ATORVASTATIN CALCIUM 20 MG TABLET PO SCH (10:00)
[2018-08-25] MEDS: FAMOTIDINE 20 MG TABLET PO SCH (10:12)
[2018-08-25 10:15] VITALS: BP 118/86
--- NOTE | 2018-08-25 15:57 | PSYCHOLOGICAL NOTE ---
Psych Note - Psych Note Date seen by psych provider: 08/25/18 Time seen by psych provider: 07:30 Psych Note: Reason for consult: Chest pressure Contact Permissions: None Patient is a 57 yo male presenting with anxiety and hx of etoh, opiate, and benzodiazepine addiction. Chart review shows prior visit 2011 for OD and IVC, 2013 pancreatitus, 2016 multiple alcohol related visits, and 06/2018 for ETOH withdrawal. Toxicology screen was negative for all substances this visit. Patient has been suffering a great deal of anxiety in the last 2 months and "can't think clear coherent thoughts". He has been self-medicating with Effexor 75qam for 2 months. Patient admits 30 year addiction to Ativan and Clonazipam and is in recovery; 3 year addiction to opiates and is in recovery, and 15 year alcohol addiction and is in recovery 2 months "but continues to struggle with relapses"/admits "I've never honestly worked and AA program". Patient attributes increased anxiety to increased stress with his mother's dementia and getting her placed into a facility. He reports a family hx of bipolar disorder (brother ) and father with depression. Pt c/o lifetime impulsivity with S/A, interrupted sleep/only able to sleep a few hours per night, anger/irritability, and difficulty concentrating/disorganized thoughts. 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 Patient is alert and oriented x 4. Mood is expansive with congruent affect. Patient denies SI, HI, and AV/H, does not appear to be responding to internal stimuli. Grandiose delusions were noted in relation to the following: his education/intellect, financial means, employment success, medication knowledge, community stature, and family stature. Conversational speech was pressured. Eye contact was well maintained. Thought processes were linear, organized, and irrational. Intellectual abilities were estimated within the average range. Attention/concentration was WNL while, insight, judgment, and impulse control w ere impaired. Diagnosis: 300.00 41.9 Unspecified Anxiety Disorder, per patient hx 305.00 F10.10 Alcohol Use Disorder, per patient hx 305.50 F11.10 Opioid Use Disorder, per patient hx 305.40 F13.10 Sedative, Hypnotic, or Anxiolytic use Disorder, per patient hx Medication recommendations as per psychiatric provider, Dr. Durbin are as follows: Start Zyprexa 5mg bid Start Cogentin 1mg bid Patient is psychiatrically clear from acute psychiatric services due to no risk of harm to self or others aeb Patient denies SI, HI, and AV/H, does not appear to be responding to internal stimuli, and no delusions were noted. Plan is for patient to be admitted. Medication recommendations were provided and patient verbalizes he will follow up with his established psychiatric provider Dr. Medeiros in [place]. Consulted Dr. Simmons in the care and treatment of this patient and attending physician Dr. Pedraza who is in agreement with disposition and recommendation. Patient was discharged before resources could be given and appointments made for follow up.
== END 2018-08-25 10:24 | disposition home or self-care (01) ==
LOC: ER 12:48 → EH 18:35
PROVIDERS: ADMIT Internal Medicine; ATTEND Internal Medicine
PROC: HZ31ZZZ Individual Counseling for Substance Abuse Treatment, Behavioral (ICD-10-PCS; principal; 2018-08-24)
DX: R07.2 Precordial pain (principal); F17.210 Nicotine dependence, cigarettes, uncomplicated; F32.9 Major depressive disorder, single episode, unspecified; F10.21 Alcohol dependence, in remission; E03.9 Hypothyroidism, unspecified; Z73.3 Stress, not elsewhere classified; F41.1 Generalized anxiety disorder; R11.0 Nausea; R06.02 Shortness of breath; R20.2 Paresthesia of skin; F11.11 Opioid abuse, in remission; R41.0 Disorientation, unspecified; R23.2 Flushing; Z90.49 Acquired absence of other specified parts of digestive tract; Z82.49 Family history of ischemic heart disease and other diseases of the circulatory system; Z87.19 Personal history of other diseases of the digestive system; Z87.11 Personal history of peptic ulcer disease
CPT/HCPCS: 93005 ×2; 94640; 99285; 96374; 36415 ×2; 84439; 82553 ×2; 80307 ×2; 82550 ×2; 83735; 84153; 84443 ×2; 85025 ×2; 80053 ×2; 84484 ×2; 84481; 83036; 80061; 83880; 71045; 93010; 99407; G0378 ×2; J2270; J3490 ×2; J7620

== ENCOUNTER 2018-11-11 00:05 | Emergency (ER) | payer SELFPAY ==
--- NOTE | 2018-11-11 00:34 | ER Document Report ---
ED Medical Screen (RME) - General Chief Complaint: Psych Problem Stated Complaint: PSYCH EVAL Time Seen by Provider: 11/11/18 00:28 TRAVEL OUTSIDE OF THE [place] IN LAST 30 DAYS: No - HPI Notes: Patient presents to the emergency department with a chief complaint of alcohol abuse. Patient accompanied by a mobile crisis hvac sales representative. Patient states he contacted mobile crisis for help with his drinking. Patient reports drinking about 1/5 of wine per day, last alcoholic average about 1 hour prior to arrival. Patient states that his son October 07, he is a recovering alcoholic, and that the of his son triggered his drinking again. He had been sober about 2 years. Patient states "I need help or going to drink myself to ." Denies homicidal or suicidal ideation. - Related Data Allergies/Adverse Reactions: Iodinated Contrast- Oral and IV Dye [IV Dye, Iodine Containing] Allergy (Mild, Verified 08/24/18 12:50) Hives Penicillins Allergy (Unknown, Verified 08/24/18 12:50) Unknown reaction Past Medical History Pulmonary Medical History: Reports: Hx Bronchitis Neurological Medical History: Reports: Hx Seizures - From alcohol abuse from DTs Endocrine Medical History: Reports: Hx Hypothyroidism Renal/ Medical History: Denies: Hx Peritoneal Dialysis GI Medical History: Reports: Hx Gastroesophageal Reflux Disease, Hx Pancreatitis - 09/15, Hx Ulcer Musculoskeltal Medical History: Psychiatric Medical History: Reports: Hx Anxiety, Hx Depression Traumatic Medical History: Reports: Hx Fractures Past Surgical History: Reports: Hx Appendectomy - 1974 - Immunizations Hx Diphtheria, Pertussis, Tetanus Vaccination: Yes Physical Exam - Vital signs Vitals: Temp Pulse Resp BP Pulse Ox 97.9 F 99 20 114/72 96 11/11/18 00:13 11/11/18 00:13 11/11/18 00:13 11/11/18 00:13 11/11/18 00:13 - General General appearance: Alert In distress: None - Psychological Associated symptoms: Anxious, Irritable Course - Re-evaluation Re-evalutation: 11/11/18 00:45 I have greeted and performed a rapid initial assessment of this patient. A comprehensive ED assessment and evaluation of the patient, analysis of test results and completion of the medical decision making process will be conducted by additional ED providers. - Vital Signs Vital signs: Temp Pulse Resp BP Pulse Ox 97.9 F 99 20 114/72 96 11/11/18 00:13 11/11/18 00:13 11/11/18 00:13 11/11/18 00:13 11/11/18 00:13
[2018-11-11] MEDS ORDERED: CLONIDINE HCL 0.1 MG TABLET PO ONE (01:22)
[2018-11-11] MEDS ORDERED: CLONAZEPAM 1 MG TABLET PO ONE (01:22)
[2018-11-11 01:42] LABS: APPEARANCE,URINE CLEAR; BILIRUBIN,URINE NEGATIVE (NEGATIVE); COLOR,URINE YELLOW; GLUCOSE, URINE NEGATIVE (NEGATIVE); KETONES,URINE NEGATIVE (NEGATIVE); LEUKOCYTE ESTERASE,URINE NEGATIVE (NEGATIVE); NITRITE,URINE NEGATIVE (NEGATIVE); PROTEIN,URINE NEGATIVE (NEGATIVE); UROBILINOGEN,URINE NEGATIVE mg/dL (<2.0)
[2018-11-11 01:59] LABS: URINE AMPHETAMINES SCREEN NEGATIVE; URINE BARBITURATES SCREEN NEGATIVE; URINE BENZODIAZEPINES SCREEN NEGATIVE; URINE COCAINE SCREEN NEGATIVE; URINE MARIJUANA (THC) SCREEN NEGATIVE; URINE METHADONE SCREEN NEGATIVE; URINE PHENCYCLIDINE SCREEN NEGATIVE
[2018-11-11 02:10] LABS: ABSOLUTE EOSINOPHILS # (AUTO) 0.2 10^3/uL (0.0-0.6); ABSOLUTE LYMPHOCYTES (AUTO) 2.6 10^3/uL (0.5-4.7); ABSOLUTE MONOCYTES (AUTO) 0.3 10^3/uL (0.1-1.4); ABSOLUTE NEUT (AUTO) 2.4 10^3/uL (1.7-8.2); BASOPHILS % (AUTO) 0.4 % (0-2); EOSINOPHILS % (AUTO) 4.1 % (0-6); HEMATOCRIT 41.8 % (37.9-51.0); HEMOGLOBIN 14.5 g/dL (13.5-17.0); MEAN CORPUSCULAR HEMOGLOBIN 33.7 pg (27.0-33.4); MEAN CORPUSCULAR HGB CONC 34.7 g/dL (32.0-36.0); MEAN CORPUSCULAR VOLUME 97 fl (80-97); MONOCYTES % (AUTO) 5.7 % (3-13); PLATELET COUNT 170 10^3/uL (150-450); RED CELL DISTRIBUTION WIDTH 13.7 % (11.5-14.0); SEGMENTED NEUTROPHILS % (AUTO) 42.8 % (42-78); TOTAL CELLS COUNTED % (AUTO) 100 %; WHITE BLOOD COUNT 5.6 10^3/uL (4.0-10.5)
[2018-11-11] MEDS ORDERED: PANTOPRAZOLE SODIUM 20 MG TABLET.DR PO ONE (02:19)
[2018-11-11] MEDS ORDERED: MAG HYDROX/AL HYDROX/SIMETH SUSP 30 ML UDCUP PO ONE ×2 (02:19→03:08)
[2018-11-11] MEDS ORDERED: LIDOCAINE 2% VISCOUS SOLN 20 ML UDCUP PO ONE (02:19)
[2018-11-11 02:30] LABS: ALANINE AMINOTRANSFERASE 39 U/L (21-72); ALBUMIN 4.9 g/dL (3.5-5.0); ALCOHOL 207 mg/dL (NONE DETECTED); ALKALINE PHOSPHATASE 73 U/L (38-126); ANION GAP 15 (5-19); ASPARTATE AMINO TRANSFERASE 57 U/L (17-59); BILIRUBIN,DIRECT 0.3 mg/dL (0.0-0.4); BILIRUBIN,TOTAL 0.3 mg/dL (0.2-1.3); BLOOD UREA NITROGEN 13 mg/dL (7-20); CALCIUM 9.9 mg/dL (8.4-10.2); CARBON DIOXIDE 20 mmol/L (22-30); CHLORIDE 106 mmol/L (98-107); GLUCOSE 88 mg/dL (75-110); LIPASE 143.5 U/L (23-300); POTASSIUM 4.4 mmol/L (3.6-5.0); SODIUM 141.2 mmol/L (137-145); TOTAL PROTEIN 8.1 g/dL (6.3-8.2)
[2018-11-11 02:32] LABS: ACETAMINOPHEN < 10 ug/mL (10-30); SALICYLATE < 1.0 mg/dL (2.0-20.0)
[2018-11-11] MEDS ORDERED: ACETAMINOPHEN 325 MG TABLET PO ONE (03:08)
--- NOTE | 2018-11-11 05:09 | ER Document Report ---
Addendum entered and electronically signed by DONAL SALVADOR MD 11/11/18 15:50: Discharge - Discharge Clinical Impression: History of alcohol abuse Depression Qualifiers: Depression Type: unspecified Qualified Code(s): F32.9 - Major depressive disorder, single episode, unspecified Alcohol intoxication Qualifiers: Complication of substance-induced condition: uncomplicated Qualified Code(s): F10.920 - Alcohol use, unspecified with intoxication, uncomplicated Alcoholic gastritis Qualifiers: Chronicity: acute Gastritis bleeding: without bleeding Qualified Code(s): K29.20 - Alcoholic gastritis without bleeding Condition: Stable Disposition: HOME, SELF-CARE Additional Instructions: For the alcohol withdrawal: 2 tabs PO Q6h PRN X 24 hrs, then 2 tabs PO Q 8 hrs PRN X 24 hrs, then 2 tabs PO Q12h PRN X 24 hrs, then 2 tabs Q 24hrs X 1. Do not start the trazodone until after the Ativan. Do not drink while taking the Ativan. You have been evaluated by both medical and mental health providers while in the emergency department. you have been cleared from both acute medical and p sychiatric services. You are dealing with grief which has varying stages that you often cycle through in no particular order. Many symptoms center around depression and anxiety. Also it is a significant stress which often has people turning to negative coping skills (such as a relapse from alcohol sobriety). You have requested detox and [facility] already started the voluntary placement process (you had a phone interview with the [facility] yesterday 11/10/18). Acute Alcohol Intoxication Your evaluation revealed very high levels of alcohol. You can from drinking a large amount of alcohol rapidly! Further, there's the risk of falls, traffic accidents, and fights. A high portion (about 50 percent) of the serious injuries seen in hospital emergency rooms are caused by alcohol. Alcohol overdosage is usually due to an underlying emotional or psychiatric problem. You may benefit from counselling. If "binge" drinking is an ongoing problem for you, or if you drink ANY AMOUNT of alcohol EVERY day, you most likely have a tendency to alcoholism. You should avoid alcohol totally. We can refer you for treatment. Persons with alc ohol problems are often also prone to other addictions -- you should discuss any use of medications or drugs with the doctor. You should be watched at home for the next several hours by someone who has not been drinking. Get extra fluids for the next 24 hours. Call the doctor if there is repeated vomiting, increasing headache, decreasing level of alertness, or any other worsening. Depression (symptom of grief) Your evaluation reveals that you have mental depression. While symptoms may be vague, they often include disturbance of sleep, fatigue, loss of appetite, and general loss of interest in life. While depression may be a side effect of drugs, or a reaction to a major change in your life, many cases have no known cause. If depression is acute, and related to a major loss in your life, you can expect it to clear completely with time. If you have been depressed a long time, are prone to repeated bouts of depression or low mood, or have been thi nking of suicide, get help. Depression can be treated with anti-depressant medication and counselling. Long-term depression will often take a few weeks to clear, even with appropriate medication. Follow-up care is important. Contact your physician, the hospital emergency center, crisis line, or your counsellor if you are losing control or having self-destructive thoughts. Anxiety (symptom of grief) The physician feels that some of your health problems are being caused by anxiety. Anxiety affects your health in many ways. Anxiety alone can cause palpitations, sweats, chest pains, abdominal pains, shortness of breath, and headaches. It contributes to ulcer disease, high blood pressure, irritable bowel syndrome, and has been shown to cause flare-ups of many other diseases. Anxiety is not a simple disorder to treat. If the anxiety is due to recent life stresses, you may simply need time to "work through" the changes. If the anxiety is due to an underlying unhappiness with yourself or due to psychiatric disturbance, professional help will be needed. Your physician can refer you for further help if needed. Anti-anxiety medication is occasionally given if the stress is acute or if you are having trouble sleeping. Chronic or frequent use of these medications is not a good idea because the body becomes reliant on it, preventing you from dealing with life's normal stresses. Follow up: You contacted [facility] for help last night. They have already begun the voluntary detox placement process (you had phone interview with the [facility] yesterday 11/10/18). [facility] has coordinated with the [facility]. They will meet you at discharge for follow up and detox bed availability/placement. Prescriptions: Trazodone HCl 50 mg PO QHS #30 tablet Lorazepam [Ativan 1 mg Tablet] 2 tab PO QID #20 tablet Referrals: [facility] [Outside] - 11/11/18 Scribe Attestation: 11/11/18 01:45 I personally performed the services described in the documentation, reviewed and edited the documentation which was dictated to the scribe in my presence, and it accurately records my words and actions. Addendum entered and electronically signed by JOANN ROBLES LPC 11/11/18 09:31: Discharge - Discharge Clinical Impression: History of alcohol abuse Depression Qualifiers: Depression Type: unspecified Qualified Code(s): F32.9 - Major depressive disorder, single episode, unspecified Alcohol intoxication Qualifiers: Complication of substance-induced condition: uncomplicated Qualified Code(s): F10.920 - Alcohol use, unspecified with intoxication, uncomplicated Alcoholic gastritis Qualifiers: Chronicity: acute Gastritis bleeding: without bleeding Qualified Code(s): K29.20 - Alcoholic gastritis without bleeding Condition: Stable Disposition: HOME, SELF-CARE Additional Instructions: You have been evaluated by both medical and mental health providers while in the emergency department. you have been cleared from both acute medical and psychiatric services. You are dealing with grief which has varying stages that you often cycle through in no particular order. Many symptoms center around depression and anxiety. Also it is a significant stress which often has people turning to negative coping skills (such as a relapse from alcohol sobriety). You have requested detox and [facility] has already started the voluntary placement process (you had a phone interview with the [facility] yesterday 11/10/18). Acute Alcohol Intoxication Your evaluation revealed very high levels of alcohol. You can from drinking a large amount of alcohol rapidly! Further, there's the risk of falls, traffic accidents, and fights. A high portion (about 50 percent) of the serious injuries seen in hospital emergency rooms are caused by alcohol. Alcohol overdosage is usually due to an underlying emotional or psychiatric problem. You may benefit from counselling. If "binge" drinking is an ongoing problem for you, or if you drink ANY AMOUNT of alcohol EVERY day, you most likely have a tendency to alcoholism. You should avoid alcohol totally. We can refer you for treatment. Persons with alcohol problems are often also prone to other addictions -- you should discuss any use of medications or drugs with the doctor. You should be watched at home for the next several hours by someone who has not been drinking. Get extra fluids for the next 24 hours. Call the doctor if there is repeated vomiting, increasing headache, decreasing level of alertness, or any other worsening. Depression (symptom of grief) Your evaluation reveals that you have mental depression. While symptoms may be vague, they often include disturbance of sleep, fatigue, loss of appetite, and general loss of interest in life. While depression may be a side effect of drugs, or a reaction to a major change in your life, many cases have no known cause. If depression is acute, and related to a major loss in your life, you can expect it to clear completely with time. If you have been depressed a long time, are prone to repeated bouts of depression or low mood, or have been thinking of suicide, get help. Depression can be treated with anti-depressant medication and counselling. Long-term depression will often take a few weeks to clear, even with appropri ate medication. Follow-up care is important. Contact your physician, the hospital emergency center, crisis line, or your counsellor if you are losing control or having self-destructive thoughts. Anxiety (symptom of grief) The physician feels that some of your health problems are being caused by anxiety. Anxiety affects your health in many ways. Anxiety alone can cause palpitations, sweats, chest pains, abdominal pains, shortness of breath, and headaches. It contributes to ulcer disease, high blood pressure, irritable bowel syndrome, and has been shown to cause flare-ups of many other diseases. Anxiety is not a simple disorder to treat. If the anxiety is due to recent life stresses, you may simply need time to "work through" the changes. If the anxiety is due to an underlying unhappiness with yourself or due to psychiatric disturbance, professional help will be needed. Your physician can refer you for further help if needed. Anti-anxiety medication is occasionally given if the stress is acute or if you are having trouble sleeping. Chronic or frequent use of these medications is not a good idea because the body becomes reliant on it, preventing you from dealing with life's normal stresses. Follow up: You contacted [facility] for help last night. They have already begun the voluntary detox placement process (you had phone interview with the [facility] yesterday 11/10/18). [facility] has coordinated with the [facility] team. They will meet you at discharge for follow up and detox bed availability/placement. Referrals: [facility] [Outside] - 11/11/18 Scribe Attestation: 11/11/18 01:45 I personally performed the services described in the documentation, reviewed and edited the documentation which was dictated to the scribe in my presence, and it accurately records my words and actions. Addendum entered and electronically signed by JOANN ROBLES LPC 11/11/18 09:24: Discharge - Discharge Clinical Impression: History of alcohol abuse Depression Qualifiers: Depression Type: unspecified Qualified Code(s): F32.9 - Major depressive disorder, single episode, unspecified Alcohol intoxication Qualifiers: Complication of substance-induced condition: uncomplicated Qualified Code(s): F10.920 - Alcohol use, unspecified with intoxication, uncomplicated Alcoholic gastritis Qualifiers: Chronicity: acute Gastritis bleeding: without bleeding Qualified Code(s): K29.20 - Alcoholic gastritis without bleeding Condition: Stable Disposition: HOME, SELF-CARE Additional Instructions: You have been evaluated by both medical and mental health providers while in the emergency department. you have been cleared from both acute medical and psychia tric services. You are dealing with grief which has varying stages that you often cycle through in no particular order. Many symptoms center around depression and anxiety. Also it is a significant stress which often has people turning to negative coping skills (such as a relapse from alcohol sobriety). You have requested detox and [facility] has already started the voluntary placement process (you had a phone interview with the [facility] yesterday 11/10/18). Acute Alcohol Intoxication Your evaluation revealed very high levels of alcohol. You can from drinking a large amount of alcohol rapidly! Further, there's the risk of falls, traffic accidents, and fights. A high portion (about 50 percent) of the serious injuries seen in hospital emergency rooms are caused by alcohol. Alcohol overdosage is usually due to an underlying emotional or psychiatric problem. You may benefit from counselling. If "binge" drinking is an ongoing problem for you, or if you drink ANY AMOUNT of alcohol EVERY day, you most likely have a tendency to alcoholism. You should avoid alcohol totally. We can refer you for treatment. Persons with alcohol problems are often also prone to other addictions -- you should discuss any use of medications or drugs with the doctor. You should be watched at home for the next several hours by someone who has not been drinking. Get extra fluids for the next 24 hours. Call the doctor if there is repeated vomiting, increasing headache, decreasing level of alertness, or any other worsening. Depression (symptom of grief) Your evaluation reveals that you have mental depression. While symptoms may be vague, they often include disturbance of sleep, fatigue, loss of appetite, and general loss of interest in life. While depression may be a side effect of drugs, or a reaction to a major change in your life, many cases have no known cause. If depression is acute, and related to a major loss in your life, you can expect it to clear completely with time. If you have been depressed a long time, are prone to repeated bouts of depression or low mood, or have been thinking of suicide, get help. Depression can be treated with anti-depressant medication and counselling. Long-term depression will often take a few weeks to clear, even with appropriate medication. Follow-up care is important. Contact your physician, the hospital emergency center, crisis line, or your counsellor if you are losing control or having self-destructive thoughts. Anxiety (symptom of grief) The physician feels that some of your health problems are being caused by anxiety. Anxiety affects your health in many ways. Anxiety alone can cause palpitations, sweats, chest pains, abdominal pains, shortness of breath, and headaches. It contributes to ulcer disease, high blood pressure, irritable bowel syndrome, and has been shown to cause flare-ups of many other diseases. Anxiety is not a simple disorder to treat. If the anxiety is due to recent life stresses, you may simply need time to "work through" the changes. If the anxiety is due to an underlying unhappiness with yourself or due to psychiatric disturbance, professional help will be needed. Your physician can refer you for further help if needed. Anti-anxiety medication is occasionally given if the stress is acute or if you are having trouble sleeping. Chronic or frequent use of these medications is not a good idea because the body becomes reliant on it, preventing you from dealing with life's normal stresses. Follow up: You contacted [facility] for help last night. They have already begun the voluntary detox placement process (you had phone interview with the [facility] yesterday 11/10/18). [facility] has coordinated with the [facility]. They will meet you at discharge for follow up and detox bed availability/placement. Referrals: [facility] [Outside] - 11/11/18 Scribe Attestation: 11/11/18 01:45 I personally performed the services described in the documentation, reviewed and edited the documentation which was dictated to the scribe in my presence, and it accurately records my words and actions. Original Note: Entered by NINA RAMÍREZ SCRIBE 11/11/18 0124 Acting as scribe for:MEGAN MOONEY MD ED General - General Chief Complaint: Psych Problem Stated Complaint: PSYCH EVAL Time Seen by Provider: 11/11/18 00:28 Mode of Arrival: Ambulatory Information source: Patient Notes: Patient is a 57 year old male with a history of alcoholism presents to the emergency department complaining of alcohol abuse. Patient states his son on October 07. He states he did well during his sons and shortly after but states he been consuming alcohol everyday starting 1 week ago, further stating his last drink was 3 hrs ago. He states "I am a mess.. I need help" and is seeking detox. He also complains of some nausea. Patient states he has not had any medications for the last few weeks. TRAVEL OUTSIDE OF THE [place] IN LAST 30 DAYS: No - Related Data Allergies/Adverse Reactions: Iodinated Contrast- Oral and IV Dye [IV Dye, Iodine Containing] Allergy (Mild, Verified 08/24/18 12:50) Hives Penicillins Allergy (Unknown, Verified 08/24/18 12:50) Unknown reaction Past Medical History - General Information source: Patient - Social History Smoking Status: Current Every Day Smoker Cigarette use (# per day): Yes - 1 PPD Chew tobacco use (# tins/day): No Smoking Education Provided: No Frequency of alcohol use: Heavy Family History: Reviewed & Not Pertinent, CAD - Father with [place] at 86 years old. Pulmonary Medical History: Reports: Hx Bronchitis Neurological Medical History: Reports: Hx Seizures - From alcohol abuse from DTs Endocrine Medical History: Reports: Hx Hypothyroidism GI Medical History: Reports: Hx Gastroesophageal Reflux Disease, Hx Pancreatitis - 09/15, Hx Ulcer Musculoskeletal Medical History: Psychiatric Medical History: Reports: Hx Anxiety, Hx Depression Traumatic Medical History: Reports: Hx Fractures Past Surgical History: Reports: Hx Appendectomy - 1974 - Immunizations Hx Diphtheria, Pertussis, Tetanus Vaccination: Yes Review of Systems - Review of Systems Constitutional: No symptoms reported EENT: No symptoms reported Cardiovascular: No symptoms reported Respiratory: No symptoms reported Gastrointestinal: See HPI, Nausea Genitourinary: No symptoms reported Male Genitourinary: No symptoms reported Musculoskeletal: No symptoms reported Skin: No symptoms reported Hematologic/Lymphatic: No symptoms reported Neurological/Psychological: See HPI -: Yes All other systems reviewed and negative Physical Exam - Vital signs Vitals: Temp Pulse Resp BP Pulse Ox 97.9 F 99 20 114/72 96 11/11/18 00:13 11/11/18 00:13 11/11/18 00:13 11/11/18 00:13 11/11/18 00:13 - Notes Notes: GENERAL: Alert, verbose, speaks loudly, interacts well. No acute distress. HEAD: Normocephalic, atraumatic. EYES: Pupils equal, round, and reactive to light. Extraocular movements intact. ENT: Oral mucosa moist, tongue midline. NECK: Full range of motion. Supple. Trachea midline. LUNGS: Clear to auscultation bilaterally, no wheezes, rales, or rhonchi. No respiratory distress. HEART: Regular rate and rhythm. No murmurs, gallops, or rubs. ABDOMEN: Soft, non-tender. Non-distended. Bowel sounds present in all 4 quadrants. No guarding, rigidity, or rebound. EXTREMITIES: Moves all 4 extremities spontaneously. NEUROLOGICAL: Alert and oriented x3. Normal speech. PSYCH: Verbose, speaks loudly. SKIN: Warm, dry, normal turgor. No rashes or lesions noted. Course - Vital Signs Vital signs: Temp Pulse Resp BP Pulse Ox 98.5 F 99 20 114/72 96 11/11/18 01:25 11/11/18 00:13 11/11/18 00:13 11/11/18 00:13 11/11/18 00:13 - Laboratory Result Diagrams: 11/11/18 01:59 11/11/18 01:59 Laboratory results interpreted by me: 11/11/18 11/11/18 01:59 01:59 RBC 4.30 L MCH 33.7 H Lymphocytes % 47.0 H Carbon Dioxide 20 L Creatinine 1.32 H Est GFR (Non-Af Amer) 56 L Salicylates < 1.0 L Acetaminophen < 10 L Discharge - Discharge Clinical Impression: History of alcohol abuse Depression Qualifiers: Depression Type: unspecified Qualified Code(s): F32.9 - Major depressive disorder, single episode, unspecified Alcohol intoxication Qualifiers: Complication of substance-induced condition: uncomplicated Qualified Code(s): F10.920 - Alcohol use, unspecified with intoxication, uncomplicated Alcoholic gastritis Qualifiers: Chronicity: acute Gastritis bleeding: without bleeding Qualified Code(s): K29.20 - Alcoholic gastritis without bleeding Condition: Stable Disposition: PSYCH HOSP/UNIT Scribe Attestation: 11/11/18 01:45 I personally performed the services described in the documentation, reviewed and edited the documentation which was dictated to the scribe in my presence, and it accurately records my words and actions. I personally performed the services described in the documentation, reviewed and edited the documentation which was dictated to the scribe in my presence, and it accurately records my words and actions.
[2018-11-11] MEDS ORDERED: MAG HYDROX/AL HYDROX/SIMETH SUSP 30 ML UDCUP ONE (06:21)
[2018-11-11] MEDS ORDERED: THIAMINE HCL 100 MG, FOLIC ACID 1 MG in NORMAL SALINE 250 ML IV ONE (09:24)
--- NOTE | 2018-11-11 09:31 | PSYCHOLOGICAL NOTE ---
Psych Note - Psych Note Date seen by psych provider: 11/11/18 Time seen by psych provider: 08:14 - Evaluation from [id number]. Psych Note: Reason for Consult: Alcohol Relapse and desire for detox, increased depression/anxiety due to grief Contact Permissions: Unknown. Utilized Zachary Epstein from [facility] (was already involved). 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 He reported he reached out to [facility] seeking help last night. He identified his "son age 31 10/07/18, he didn't go back to work right away, he is a recovering alcoholic, had been sober for 2 years and relapsed 10 days ago, drinking every day, yesterday he had five 750ML 12% wine and last drink was last night before I came." He identified he had AA involvement in the past and has been to detox/treatment "several times but it has been 10-15 years ago." He commented "I will drink myself to , not that I want to or that's why I'm drinking, once I start I need help and I got to quit now before it gets worse." He denied other drug use. UDS was negative for all substances tested. Serum Alcohol Level was 207 upon arrival to the ED. He denied SI/HI. he stated he wants a 5-7 day detox and denied any history of seizu res. Patient was alert and oriented to self, person, place, time and situation. Mood was depressed with flat affect. He denied SI/HI. He did not appear to be responding to internal stimuli as evidenced by fair eye contact, answering questions appropriately when addressed, staying on topic, carrying on dialogue conversation and being engaged in evaluation. Thought processes were linear and organized. Conversational speech was within normal limits for rate, tone and prosody. Intellectual abilities are estimated to be average. Insight, judgment and impulse control were fair as evidenced by reaching out to [facility] for help, being engaged in evaluation and being involved in treatment plan. [facility] egg caser spoke to Zachary Lucian from [facility]. He stated they had already begun the voluntary detox placement process and patient had a phone interview with the [facility] yesterday. He reported he would meet patient at discharge to continue the placement process. This was coordinated and what took place. Diagnosis: V62.82 (Z63.4) Uncomplicated Bereavement (31 year old son 10/07/18) 303.90 (F10.20) Alcohol Use Disorder, Severe (Relapse past 10 days straight after 2 years of sobriety) Impression/Plan: Patient is cleared from acute psychiatric services. He denied SI/HI which has been consistent since his arrival to the ED. No observed psychosis. He contacted [facility] last evening for help with alcohol detox. He acknowledged he was a recovering alcoholic, had gone 2 years, but his 31 year old son 10/07/18, he relapsed, has been drinking for the past 10 days straight, and yesterday had five 750ML 12% alcohol wine. [facility] contacted [facility] worker Zachary Epstein who noted they already started the voluntary detox placement process. Patient completed a phone interview with the [facility] yesterday (11/10/18). [facility] met patient at discharge for follow up and detox bed availability/placement. Consulted with Dr. Simmons regarding the management and care of patient. ED Physician in agreement with recommendations.
[2018-11-11] MEDS ORDERED: ONDANSETRON HCL INJ/PF 4 MG/2 ML SDV IV ONE (10:46)
[2018-11-11] MEDS ORDERED: LORAZEPAM INJ 2 MG/1 ML VIAL IV ONE (10:46)
[2018-11-11 15:31] VITALS: BP 119/85
--- NOTE | 2018-11-12 11:07 | EKG REPORT ---
SEVERITY:- NORMAL ECG - SINUS RHYTHM : Confirmed by: Robert Mcgrath 12-Nov-2018 11:06:09
== END 2018-11-11 16:02 | disposition home or self-care (01) ==
LOC: ER 00:05
DX: F10.229 Alcohol dependence with intoxication, unspecified (principal); K29.20 Alcoholic gastritis without bleeding; F32.9 Major depressive disorder, single episode, unspecified; R11.0 Nausea; F17.210 Nicotine dependence, cigarettes, uncomplicated; Z63.4 Disappearance and death of family member; Z91.041 Radiographic dye allergy status; Z88.0 Allergy status to penicillin
CPT/HCPCS: 93005; 99284; 96375; 96365; 36415; 80307 ×4; 83690; 85025; 80053; 81001; 93010; J3490 ×3; J2060; J3411; J2405; J7050

== ENCOUNTER 2018-11-15 20:20 | Emergency (ER) | payer SELFPAY ==
[2018-11-15 20:38] VITALS: BP 135/92
--- NOTE | 2018-11-15 23:39 | ER Document Report ---
ED General - General Chief Complaint: Psych Problem Stated Complaint: ETOH ABUSE Time Seen by Provider: 11/15/18 23:04 Notes: Patient is a 57-year-old male past medical history of alcohol abuse, presents for problem alcohol use. When I walk into the room to engage the patient he is somewhat agitated, pacing about the room repeatedly saying that he believes that he should not come to the emergency department. 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 I a repeat of the try to redirect the patient and encouraged him to disclose to me what brought him to the emergency department today and how I can help him. Patient does open up somewhat stating that he is very depressed, sad regarding the loss of his son. He does become quite loud when he is talking about the loss of his son, very tearful and emotional stating that he "does not know what to do" regarding the loss of his son. The patient states that ever since the he has been drinking heavily on most days. He denies suicidal or homicidal ideation. Denies any intent or desire to harm himself stating "I am already inside". The patient was seen in the emergency department and seen by psychiatry several days ago. At that time he had been working with [facility] as well as the [facility] for rehab but apparently did not follow up with these resources. When I asked him why he did not he states "I was feeling better and did not feel like I needed to". He denies any acute medical complaints. Has been drinking today. Denies any other substances. Denies any previous attempts to harm himself. TRAVEL OUTSIDE OF THE U[place] IN LAST 30 DAYS: No - Related Data Allergies/Adverse Reactions: Iodinated Contrast- Oral and IV Dye [IV Dye, Iodine Containing] Allergy (Mild, Verified 08/24/18 12:50) Hives Penicillins Allergy (Unknown, Verified 08/24/18 12:50) Unknown reaction Past Medical History - General Information source: Patient - Social History Smoking Status: Never Smoker Frequency of alcohol use: Heavy Drug Abuse: None Lives with: Alone Family History: Reviewed & Not Pertinent, CAD - Father with [place] at 86 years old. Pulmonary Medical History: Reports: Hx Bronchitis Neurological Medical History: Reports: Hx Seizures - From alcohol abuse from DTs Endocrine Medical History: Reports: Hx Hypothyroidism Renal/ Medical History: Denies: Hx Peritoneal Dialysis GI Medical History: Reports: Hx Gastroesophageal Reflux Disease, Hx Pancreatitis - 09/15, Hx Ulcer Musculoskeletal Medical History: Psychiatric Medical History: Reports: Hx Anxiety, Hx Depression Traumatic Medical History: Reports: Hx Fractures Past Surgical History: Reports: Hx Appendectomy - 1974 - Immunizations Hx Diphtheria, Pertussis, Tetanus Vaccination: Yes Review of Systems - Review of Systems Notes: Constitutional: Negative for fever. HENT: Negative for sore throat. Eyes: Negative for visual changes. Cardiovascular: Negative for chest pain. Respiratory: Negative for shortness of breath. Gastrointestinal: Negative for abdominal pain, vomiting or diarrhea. Genitourinary: Negative for dysuria. Musculoskeletal: Negative for back pain. Skin: Negative for rash. Neurological: Negative for headaches, weakness or numbness. 10 point ROS negative except as marked above and in HPI. Physical Exam - Vital signs Vitals: Temp Pulse Resp BP Pulse Ox 98.1 F 92 16 135/92 H 99 11/15/18 20:38 11/15/18 20:38 11/15/18 20:38 11/15/18 20:38 11/15/18 20:38 Interpretation: Normal Notes: PHYSICAL EXAMINATION: GENERAL: Well-appearing, well-nourished and in no acute distress. HEAD: Atraumatic, normocephalic. EYES: Pupils equal round and reactive to light, extraocular movements intact, sclera anicteric, conjunctiva are normal. ENT: nares patent, oropharynx clear without exudates. Moist mucous membranes. NECK: Normal range of motion, supple without lymphadenopathy LUNGS: Breath sounds clear to auscultation bilaterally and equal. No wheezes rales or rhonchi. HEART: Regular rate and rhythm without murmurs ABDOMEN: Soft, nontender, normoactive bowel sounds. No guarding, no rebound. No masses appreciated. EXTREMITIES: Normal range of motion, no pitting or edema. No cyanosis. NEUROLOGICAL: No focal neurological deficits. Moves all extremities spontaneously and on command. PSYCH: Anxious, intermittently tearful, somewhat agitated SKIN: Warm, Dry, normal turgor, no rashes or lesions noted. Course - Re-evaluation Re-evalutation: 11/15/18 23:37 Patient presents with increasing depression, alcohol abuse in the setting of a recent loss of his son who is only 34 years of age. The patient is intermittently tearful, very emotional but adamantly denies suicidal or homicidal ideation. The patient is quite frustrated that he has come to the emergency department previously and has not been able to get help with his problem drinking although admits that when [facility] did contact him to try to schedule rehab he did not answer the phone and did not fo llow with that resource option. The patient denies any medical complaints. States that he does not wish to stay here, does not think he should be in the emergency department and should have followed with our services have offered to allow him to stay and speak to psych her again in the morning which he declines. At this time will discharge with return precautions and follow-up recommendations. Verbal discharge instructions given a the bedside and opportunity for questions given. Patient is in agreement with this plan and has verbalized understanding of return precautions and the need for primary care follow-up in the next 24-72 hours. - Vital Signs Vital signs: Temp Pulse Resp BP Pulse Ox 98.1 F 92 16 135/92 H 99 11/15/18 20:38 11/15/18 20:38 11/15/18 20:38 11/15/18 20:38 11/15/18 20:38 Discharge - Discharge Clinical Impression: History of alcohol abuse Depression Qualifiers: Depression Type: unspecified Qualified Code(s): F32.9 - Major depressive disorder, single episode, unspecified Condition: Stable Disposition: HOME, SELF-CARE Additional Instructions: Please return if you have thoughts of wanting to hurt yourself, hurt others, or have any other symptoms that are concerning to you.
== END 2018-11-16 | disposition home or self-care (01) ==
LOC: ER 20:20
DX: F10.10 Alcohol abuse, uncomplicated (principal); F32.9 Major depressive disorder, single episode, unspecified; Z63.4 Disappearance and death of family member; Z91.041 Radiographic dye allergy status; Z88.0 Allergy status to penicillin
CPT/HCPCS: 99283

== ENCOUNTER 2019-03-24 14:10 | Emergency (ER) | payer SELFPAY ==
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
[2019-03-24 15:11] LABS: ABSOLUTE EOSINOPHILS # (AUTO) 0.1 10^3/uL (0.0-0.6); ABSOLUTE LYMPHOCYTES (AUTO) 1.6 10^3/uL (0.5-4.7); ABSOLUTE MONOCYTES (AUTO) 0.4 10^3/uL (0.1-1.4); ABSOLUTE NEUT (AUTO) 4.3 10^3/uL (1.7-8.2); BASOPHILS % (AUTO) 0.6 % (0-2); EOSINOPHILS % (AUTO) 0.9 % (0-6); HEMATOCRIT 43.1 % (37.9-51.0); HEMOGLOBIN 14.9 g/dL (13.5-17.0); LYMPHOCYTES % (AUTO) 25.5 % (13-45); MEAN CORPUSCULAR HEMOGLOBIN 33.3 pg (27.0-33.4); MEAN CORPUSCULAR HGB CONC 34.5 g/dL (32.0-36.0); MEAN CORPUSCULAR VOLUME 97 fl (80-97); MONOCYTES % (AUTO) 5.5 % (3-13); PLATELET COUNT 240 10^3/uL (150-450); RED BLOOD COUNT 4.47 10^6/uL (4.35-5.55); RED CELL DISTRIBUTION WIDTH 13.8 % (11.5-14.0); SEGMENTED NEUTROPHILS % (AUTO) 67.5 % (42-78); TOTAL CELLS COUNTED % (AUTO) 100 %; WHITE BLOOD COUNT 6.3 10^3/uL (4.0-10.5)
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
[2019-03-24 15:35] LABS: ALBUMIN 4.8 g/dL (3.5-5.0); ALCOHOL 241 mg/dL (NONE DETECTED); ALKALINE PHOSPHATASE 52 U/L (38-126); ANION GAP 14 (5-19); ASPARTATE AMINO TRANSFERASE 50 U/L (17-59); BILIRUBIN,DIRECT 0.3 mg/dL (0.0-0.4); BILIRUBIN,TOTAL 0.5 mg/dL (0.2-1.3); BLOOD UREA NITROGEN 17 mg/dL (7-20); CALCIUM 9.3 mg/dL (8.4-10.2); CARBON DIOXIDE 25 mmol/L (22-30); CHLORIDE 105 mmol/L (98-107); GLUCOSE 112 mg/dL (75-110); POTASSIUM 3.9 mmol/L (3.6-5.0); TOTAL PROTEIN 7.8 g/dL (6.3-8.2)
[2019-03-24 15:40] LABS: ACETAMINOPHEN < 10 ug/mL (10-30); SALICYLATE < 1.0 mg/dL (2.0-20.0)
--- NOTE | 2019-03-24 16:23 | RADIOLOGY REPORT (SQ) ---
EXAM DESCRIPTION: CT HEAD WITHOUT COMPLETED DATE/TIME: 03/24/2019 4:07 pm REASON FOR STUDY: Alcoholic, altered mental status COMPARISON: 04/05/2012 TECHNIQUE: Axial images acquired through the brain without intravenous contrast. Images reviewed wi th bone, brain and subdural windows. Additional sagittal and coronal reconstructions were generated. Images stored on PACS. All CT scanners at this facility use dose modulation, iterative reconstruction, and/or weight based d osing when appropriate to reduce radiation dose to as low as reasonably achievable (ALARA). [facility]: Dose Right [facility]: CareDose [facility]: Dose Right [facility]: Teradose 4D [facility]: KickAss Candy RADIATION DOSE: CT Rad equipment meets quality standard of care and radiation dose reduction techniq ues were employed. CTDIvol: 48.6 mGy. DLP: 979 mGy-cm. mGy. LIMITATIONS: None. FINDINGS: VENTRICLES: Normal size and contour. CEREBRUM: No masses. No hemorrhage. No midline shift. No evidence for acute infarction. Normal gra y/white matter differentiation. No areas of low density in the white matter. CEREBELLUM: No masses. No hemorrhage. No alteration of density. No evidence for acute infarction. EXTRAAXIAL SPACES: No fluid collections. No masses. ORBITS AND GLOBE: No intra- or extraconal masses. Normal contour of globe without masses. CALVARIUM: No fracture. PARANASAL SINUSES: No fluid or mucosal thickening. SOFT TISSUES: No mass or hematoma. OTHER: No other significant finding. IMPRESSION: NO ACUTE INTRACRANIAL IMAGING FINDINGS. EVIDENCE OF ACUTE STROKE: NO. COMMENT: Quality ID # [id number]: Final reports with documentation of one or more dose reduction techniques (e.g., Automated exposure control, adjustment of the mA and/or kV according to patient size, use of iterative reconstruction technique) TECHNICAL DOCUMENTATION: JOB ID: [id number] [employer]- All Rights Reserved Reading location - IP/workstation name: [email or web address]
[2019-03-24] MEDS ORDERED: NORMAL SALINE 1000 ML 1,000 ML IV ONE (17:01)
--- NOTE | 2019-03-24 17:38 | EKG REPORT ---
SEVERITY:- NORMAL ECG - SINUS RHYTHM : Confirmed by: Beth Boykin MD 24-Mar-2019 17:37:55
[2019-03-24 18:37] LABS: APPEARANCE,URINE CLEAR; BILIRUBIN,URINE NEGATIVE (NEGATIVE); COLOR,URINE YELLOW; GLUCOSE, URINE NEGATIVE (NEGATIVE); KETONES,URINE NEGATIVE (NEGATIVE); LEUKOCYTE ESTERASE,URINE NEGATIVE (NEGATIVE); NITRITE,URINE NEGATIVE (NEGATIVE); PROTEIN,URINE 30 mg/dL (NEGATIVE); URINE SPECIFIC GRAVITY 1.013; UROBILINOGEN,URINE NEGATIVE mg/dL (<2.0)
[2019-03-24 18:46] LABS: URINE AMPHETAMINES SCREEN NEGATIVE; URINE BARBITURATES SCREEN NEGATIVE; URINE BENZODIAZEPINES SCREEN UNCONFIRMED POSITIVE; URINE COCAINE SCREEN NEGATIVE; URINE MARIJUANA (THC) SCREEN UNCONFIRMED POSITIVE; URINE METHADONE SCREEN NEGATIVE; URINE PHENCYCLIDINE SCREEN NEGATIVE
[2019-03-25] MEDS ORDERED: ONDANSETRON 4 MG TAB.RAPDIS PO PRN (09:47)
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
[2019-03-25] MEDS ORDERED: HYDROXYZINE PAMOATE 50 MG CAPSULE PO PRN (09:48)
[2019-03-25 11:14] VITALS: BP 137/90
== END 2019-03-25 11:23 | disposition home or self-care (01) ==
LOC: ER 14:10
DX: F10.120 Alcohol abuse with intoxication, uncomplicated (principal); R45.851 Suicidal ideations; E86.0 Dehydration; F17.200 Nicotine dependence, unspecified, uncomplicated; Z91.041 Radiographic dye allergy status; Z88.0 Allergy status to penicillin
CPT/HCPCS: 93005; 99285; 96360; 36415; 80307 ×4; 83690; 85025; 80053; 81001; 70450; 93010; S0119; J7030

== ENCOUNTER 2019-07-30 08:50 | Emergency (ER) | payer SELFPAY ==
[2019-07-30] MEDS ORDERED: DIPH/PERTUSS(ACELL)/TETANUS VAC/PF 0.5 ML SYR (>=10YO) IM ONE (09:59)
[2019-07-30] MEDS ORDERED: OXYCODONE-ACETAMINOPHEN 5-325 MG TABLET PO ONE (09:59)
--- NOTE | 2019-07-30 10:12 | ER Document Report ---
HPI - HPI Time Seen by Provider: 07/30/19 09:55 Pain Level: 5 Notes: 58-year-old male patient presenting to the emergency department with complaints of right foot pain. Patient reports yesterday he stepped on a pb nail. He states the nail went through his shoe and into his foot. He states his tetanus is not up-to-date. He reports that his pain has increased throughout the night and states that it is difficult to bear weight on his foot. - REPRODUCTIVE Reproductive: DENIES: : Past Medical History - General Information source: Patient - Social History Smoking Status: Current Every Day Smoker Frequency of alcohol use: None Drug Abuse: None Family History: Reviewed & Not Pertinent, CAD - Father with [place] at 86 years old. Patient has suicidal ideation: No Patient has homicidal ideation: No Pulmonary Medical History: Reports: Hx Bronchitis Neurological Medical History: Reports: Hx Seizures - From alcohol abuse from DTs Endocrine Medical History: Reports: Hx Hypothyroidism Renal/ Medical History: Denies: Hx Peritoneal Dialysis GI Medical History: Reports: Hx Gastroesophageal Reflux Disease, Hx Pancreatitis - 09/15, Hx Ulcer Musculoskeletal Medical History: Psychiatric Medical History: Reports: Hx Anxiety, Hx Depression Traumatic Medical History: Reports: Hx Fractures Past Surgical History: Reports: Hx Appendectomy - 1974 - Immunizations Hx Diphtheria, Pertussis, Tetanus Vaccination: Yes Vertical Provider Document - CONSTITUTIONAL Notes: PHYSICAL EXAMINATION: GENERAL: Well-appearing, well-nourished and in no acute distress. HEAD: Atraumatic, normocephalic. EYES: Pupils equal round extraocular movements intact, conjunctiva are normal. ENT: Nares patent NECK: Normal range of motion LUNGS: No respiratory distress Musculoskeletal: Normal range of motion NEUROLOGICAL: Normal speech, normal gait. PSYCH: Normal mood, normal affect. SKIN: Puncture wound noted to plantar surface of right foot, mild surrounding erythema, no active bleeding noted. - INFECTION CONTROL TRAVEL OUTSIDE OF THE [place] IN LAST 30 DAYS: No Course - Re-evaluation Re-evalutation: No foreign body noted on x-ray, pain is disproportionate to injury. Will start patient on some pain medication, antibiotics and referred to orthopedics. Patient verbalizes understanding and agreement with this plan. - Vital Signs Vital signs: Temp Pulse Resp BP Pulse Ox 97.4 F 85 126/79 H 99 07/30/19 08:56 07/30/19 08:56 07/30/19 08:56 07/30/19 08:56 Discharge - Discharge Clinical Impression: Puncture wound of foot Qualifiers: Encounter type: initial encounter Laterality: right Qualified Code(s): S91.331A - Puncture wound without foreign body, right foot, initial encounter Condition: Stable Disposition: HOME, SELF-CARE Additional Instructions: You were seen in the emergency department today for a puncture wound to the bottom of your foot. Fortunately the x-ray does not show any fracture of the bone or any retained radiopaque foreign body. It is important to take the antibiotics that if prescribed as the nail did go through your shoe. Your tetanus was updated today. The pain you are experiencing seems to be out of proportion with the injury which is why I would like you to see orthopedics. Their contact info was below. I have also refilled your levothyroxine per your request. Please take ibuprofen 600 mg every 6 hours. Take the narcotic pain medication for severe pain only. Prescriptions: Ciprofloxacin HCl [Cipro 500 mg Tablet] 500 mg PO BID #10 tablet Hydrocodone Bit/Acetaminophen [Hydrocodon-Acetaminophen 5-325] 1 each PO Q4H #12 tablet Levothyroxine Sodium 100 mcg PO DAILY #30 tablet Referrals: NAZIA TREVIZO MD [ACTIVE STAFF] - Follow up as needed WHIT LANDRY JR, DO [ACTIVE PROVISIONAL STAFF] - Follow up as needed
--- NOTE | 2019-07-30 10:39 | RADIOLOGY REPORT (SQ) ---
EXAM DESCRIPTION: FOOT RIGHT COMPLETE COMPLETED DATE/TIME: 07/30/2019 10:10 am REASON FOR STUDY: stepped on nail COMPARISON: None. NUMBER OF VIEWS: Three views. TECHNIQUE: AP, lateral and oblique radiographic images acquired of the right foot. LIMITATIONS: None. FINDINGS: MINERALIZATION: Normal. BONES: No acute fracture or dislocation. No worrisome bone lesions. JOINTS: No effusions. SOFT TISSUES: No soft tissue swelling. No foreign body. OTHER: No other significant finding. IMPRESSION: No retained radiopaque foreign body. No aggressive bony demineralization of the 4th metatarsal/4th toe phalanges to suggest osteomyelitis TECHNICAL DOCUMENTATION: JOB ID: [id number] [employer]- All Rights Reserved Reading location - IP/workstation name: [email or web address]
[2019-07-30 11:42] VITALS: BP 121/86
== END 2019-07-30 11:43 | disposition home or self-care (01) ==
LOC: ER 08:50
DX: S91.331A Puncture wound without foreign body, right foot, initial encounter (principal); M79.671 Pain in right foot; W45.0XXA Nail entering through skin, initial encounter; F17.200 Nicotine dependence, unspecified, uncomplicated; Z23 Encounter for immunization
CPT/HCPCS: 90471; 90715; 99283

== ENCOUNTER 2020-01-24 20:23 | Emergency (ER) | payer SELFPAY ==
[2020-01-24] MEDS ORDERED: IPRATROPIUM/ALBUTEROL 0.5-2.5 MG/3 ML AMPUL NEB ONE (22:25)
[2020-01-24] MEDS ORDERED: METHYLPREDNISOLONE INJ 125 MG/2 ML SDV IV ONE (22:25)
--- NOTE | 2020-01-24 22:27 | ER Document Report ---
ED General - General Chief Complaint: Chest Congestion Stated Complaint: COUGH Time Seen by Provider: 01/24/20 22:09 Notes: Patient is a 59-year-old male that comes emergency department for chief complaint of cough, wheezing, chest congestion for the past week. He denies fever, he does report occasional pressure in his chest but he thinks it is related to the cough. He denies abdominal pain or vomiting. Patient smokes, denies history of diagnosed COPD or asthma, does not use home albuterol or home oxygen. Patient does have a history of chronic alcoholism, GERD/peptic ulcers, hypothyroidism, appendectomy. He states he lives at home with his elderly parents. He denies any recent travel or obvious sick contacts. Patient does admit to alcohol today and states that if he does not drink he does get withdrawal symptoms although he does have prescribed clonazepam as well. TRAVEL OUTSIDE OF THE [place] IN LAST 30 DAYS: No - Related Data Allergies/Adverse Reactions: Iodinated Contrast Media [IV Dye, Iodine Containing] Allergy (Mild, Verified 07/30/19 09:51) Hives Penicillins Allergy (Unknown, Verified 07/30/19 09:51) Unknown reaction Home Medications: Sythroid, Clonazepam Past Medical History - General Information source: Patient - Social History Smoking Status: Current Every Day Smoker Chew tobacco use (# tins/day): No Smoking Education Provided: Yes - <3 min Frequency of alcohol use: Heavy Drug Abuse: None Lives with: Family Family History: Reviewed & Not Pertinent, CAD - Father with [place] at 86 years old. Patient has homicidal ideation: No Pulmonary Medical History: Reports: Hx Bronchitis Neurological Medical History: Reports: Hx Seizures - From alcohol abuse from DTs Endocrine Medical History: Reports: Hx Hypothyroidism Renal/ Medical History: Denies: Hx Peritoneal Dialysis GI Medical History: Reports: Hx Gastroesophageal Reflux Disease, Hx Pancreatitis - 09/15, Hx Ulcer Musculoskeletal Medical History: Psychiatric Medical History: Reports: Hx Anxiety, Hx Depression Traumatic Medical History: Reports: Hx Fractures Past Surgical History: Reports: Hx Appendectomy - 1974 - Immunizations Hx Diphtheria, Pertussis, Tetanus Vaccination: Yes Review of Systems - Review of Systems Constitutional: See HPI EENT: No symptoms reported Cardiovascular: See HPI Respiratory: See HPI Gastrointestinal: No symptoms reported Genitourinary: No symptoms reported Male Genitourinary: No symptoms reported Musculoskeletal: No symptoms reported Skin: No symptoms reported Hematologic/Lymphatic: No symptoms reported Neurological/Psychological: No symptoms reported Physical Exam - Vital signs Vitals: Temp Pulse Resp BP Pulse Ox 98.4 F 110 H 20 113/87 H 95 01/24/20 21:03 01/24/20 21:03 01/24/20 21:03 01/24/20 21:03 01/24/20 21:03 - Notes Notes: GENERAL: Smells of alcohol, appears mildly intoxicated but still alert and cooperative HEAD: Normocephalic, atraumatic. EYES: Pupils equal, round, and reactive to light. Extraocular movements intact. ENT: Oral mucosa dry, tongue midline. Oropharynx unremarkable. Airway patent. Nares patent, sinuses non-tender, ear canals unremarkable, TM's intact. NECK: Full range of motion. Supple. Trachea midline. No lymphadenopathy. LUNGS: Expiratory wheezes throughout and occasional congested cough. No tachypnea or labored breathing. Speaks in full sentences. No respiratory distress. HEART: Borderline tachycardic, normal rhythm, no murmur ABDOMEN: Soft, non-tender. Non-distended. EXTREMITIES: Moves all 4 extremities spontaneously. No edema, normal radial and dorsalis pedis pulses bilaterally. No cyanosis. BACK: no cervical, thoracic, lumbar midline tenderness. No saddle anesthesia, normal distal neurovascular exam. Moves all extremities in full range of motion. NEUROLOGICAL: Alert and oriented x3. Normal speech. Cranial nerves II through XII grossly intact. Strength 5/5 in all extremities. PSYCH: Normal affect, normal mood. SKIN: Warm, dry, normal turgor. No rashes or lesions noted. Course - Re-evaluation Re-evalutation: On my evaluation patient appears mildly intoxicated, he is also wheezing throughout all lung briscoe, has occasional congested cough. However he is able to speak in full sentences, he is alert, cooperative and well appearing. He is mildly tachycardic. He is not hypoxic. Chest x-ray unremarkable, CBC, chemistry, troponin unremarkable despite symptoms going on for multiple days. EKG unremarkable. Based on his overall work-up and evaluation I suspect patient has bronchitis. Patient was tested for the coronavirus, provided with steroids to the IV instead of oral because of his long history of gastritis and alcoholism. Patient was provided with inhaler and spacer, I discussed work-up details at length, patient is not tachycardic anymore, wheezing has resolved, he has no current complaints, he is very well- appearing and alert. Patient is going home with his parents. Discussed return precautions and follow-up. Patient states understanding and agreement. - Vital Signs Vital signs: Temp Pulse Resp BP Pulse Ox 98.0 F 72 19 122/74 97 01/25/20 03:07 01/25/20 03:07 01/25/20 03:07 01/25/20 03:07 01/25/20 03:07 - Laboratory Result Diagrams: 01/24/20 22:39 01/24/20 22:39 Laboratory results interpreted by me: 01/24/20 01/24/20 22:39 22:39 RBC 4.11 L MCV 99 H MCH 34.1 H RDW 14.5 H Creatinine 1.30 H Est GFR (MDRD) Non-Af 57 L - EKG Interpretation by Me Additional EKG results interpreted by me: EKG shows sinus tachycardia at a rate of 100, normal axis, QTC of 444, no T wave inversions or ST segment changes in consecutive leads Discharge - Discharge Clinical Impression: Wheezing, Cough, Shortness of breath Condition: Stable Disposition: HOME, SELF-CARE Additional Instructions: Your laboratory work-up and chest x-ray did not show any concerning findings today. Your evaluation is consistent with bronchitis. You have been treated with steroids here, use the albuterol with a spacer as provided. This is most likely viral and should simply resolve with time. You also been tested for the coronavirus and you will be contacted with these results with additional instructions. Stop smoking. Follow-up with primary care. Also consider the Detox followup listed below. Return if you worsen including spiking fevers, severe pain, worsening difficulty breathing, or any other concerning or worsening symptoms. Detox: [facility] [address] [place] [address] , [place] [address] Hours: Open 24 hours As a person under investigation for COVID-19, the [place] Department of Health and Human Services (division on public health) advises you to adhere to the following guidance until your test results are reported to you. If your test result is positive, you will receive additional information from your provider and your local health department at that time. Remain at home until you are cleared by the health provider or public health authorities. Keep a log of visitors to your home, notify any visitors to your home of your isolation status. If you plan to move to a new address or leave the county, notify the local health department in your County. Call your Doctor or seek care if you have an urgent medical need. Before seeking medical care, call him to get instructions from the provider before arriving at the medical office, clinic, or hospital. Notify them that you are being tested for the virus (COVID-19) so that arrangements can be made, as necessary, to prevent transmission to others in the healthcare setting. Next, notify the local health department in your county. If a medical emergency arises and you need to call 911, inform the first responders that you are being tested for the virus that causes COVID-19. Next, notify the local health department in your county. Prescriptions: Albuterol Sulfate [Proair HFA Inhalation Aerosol 8.5 gm MDI] 2 puff IH Q4H PRN #1 mdi PRN Reason:
[2020-01-24 23:02] LABS: ABSOLUTE EOSINOPHILS # (AUTO) 0.1 10^3/uL (0.0-0.6); ABSOLUTE LYMPHOCYTES (AUTO) 2.4 10^3/uL (0.5-4.7); ABSOLUTE MONOCYTES (AUTO) 0.4 10^3/uL (0.1-1.4); BASOPHILS % (AUTO) 0.7 % (0-2); EOSINOPHILS % (AUTO) 2.4 % (0-6); HEMATOCRIT 40.9 % (37.9-51.0); LYMPHOCYTES % (AUTO) 39.8 % (13-45); MEAN CORPUSCULAR HEMOGLOBIN 34.1 pg (27.0-33.4); MEAN CORPUSCULAR HGB CONC 34.3 g/dL (32.0-36.0); MEAN CORPUSCULAR VOLUME 99 fl (80-97); MONOCYTES % (AUTO) 6.8 % (3-13); PLATELET COUNT 283 10^3/uL (150-450); RED BLOOD COUNT 4.11 10^6/uL (4.35-5.55); RED CELL DISTRIBUTION WIDTH 14.5 % (11.5-14.0); SEGMENTED NEUTROPHILS % (AUTO) 50.3 % (42-78); TOTAL CELLS COUNTED % (AUTO) 100 %
[2020-01-24 23:25] LABS: ALBUMIN 4.6 g/dL (3.5-5.0); ALKALINE PHOSPHATASE 75 U/L (38-126); ANION GAP 12 (5-19); ASPARTATE AMINO TRANSFERASE 50 U/L (17-59); BILIRUBIN,TOTAL 0.2 mg/dL (0.2-1.3); BLOOD UREA NITROGEN 20 mg/dL (7-20); CALCIUM 9.1 mg/dL (8.4-10.2); CARBON DIOXIDE 23 mmol/L (22-30); CHLORIDE 104 mmol/L (98-107); GLUCOSE 92 mg/dL (75-110); POTASSIUM 4.9 mmol/L (3.6-5.0); TOTAL PROTEIN 7.8 g/dL (6.3-8.2)
[2020-01-24] MEDS ORDERED: NORMAL SALINE 1000 ML 1,000 ML IV ONE (23:28)
--- NOTE | 2020-01-24 23:47 | RADIOLOGY REPORT (SQ) ---
EXAM DESCRIPTION: XR CHEST 1 VIEW COMPLETED DATE/TME: 01/24/2020 22:25 CLINICAL HISTORY: 59 years, Male, worsening cough, shortness of breath COMPARISON: 08/24/2018 chest NUMBER OF VIEWS: 1 TECHNIQUE: Portable chest LIMITATIONS: None FINDINGS: The heart size is normal. Lungs are clear. No pneumothorax IMPRESSION: Negative chest copyright 2010 [employer]- All Rights Reserved
[2020-01-25] MEDS ORDERED: ALBUTEROL SULFATE HFA (90 MCG/PUFF) 8 GM MDI IH ONE (00:14)
--- NOTE | 2020-01-25 00:28 | EKG REPORT ---
SEVERITY:- OTHERWISE NORMAL ECG - SINUS TACHYCARDIA : Confirmed by: Robert Mcgrath 25-Jan-2020 00:27:43
[2020-01-25 03:08] VITALS: BP 122/74
== END 2020-01-25 03:05 | disposition home or self-care (01) ==
LOC: ER 20:23
DX: R05 Cough (principal); R06.2 Wheezing; R06.02 Shortness of breath; F17.210 Nicotine dependence, cigarettes, uncomplicated; Z20.828 Contact with and (suspected) exposure to other viral communicable diseases; Z88.0 Allergy status to penicillin
CPT/HCPCS: 93005; 99406; 94640; 99284; 96361; 96374; 36415; 83690; 85025; 87635; 80053; 84484; 71045; 93010; J2930; J7030; J7620; C9803

== ENCOUNTER 2020-03-14 01:13 | Emergency (ER) | payer SELFPAY ==
[2020-03-14] MEDS ORDERED: ACETAMINOPHEN 325 MG TABLET PO ONE (06:55)
[2020-03-14 07:17] LABS: ABSOLUTE EOSINOPHILS # (AUTO) 0.1 10^3/uL (0.0-0.6); ABSOLUTE LYMPHOCYTES (AUTO) 1.7 10^3/uL (0.5-4.7); ABSOLUTE MONOCYTES (AUTO) 0.4 10^3/uL (0.1-1.4); ABSOLUTE NEUT (AUTO) 1.8 10^3/uL (1.7-8.2); EOSINOPHILS % (AUTO) 2.6 % (0-6); HEMATOCRIT 42.5 % (37.9-51.0); HEMOGLOBIN 14.4 g/dL (13.5-17.0); LYMPHOCYTES % (AUTO) 42.8 % (13-45); MEAN CORPUSCULAR HEMOGLOBIN 33.8 pg (27.0-33.4); MEAN CORPUSCULAR VOLUME 100 fl (80-97); MONOCYTES % (AUTO) 9.6 % (3-13); PLATELET COUNT 214 10^3/uL (150-450); RED BLOOD COUNT 4.27 10^6/uL (4.35-5.55); RED CELL DISTRIBUTION WIDTH 14.5 % (11.5-14.0); TOTAL CELLS COUNTED % (AUTO) 100 %
[2020-03-14 07:30] LABS: APPEARANCE,URINE CLEAR; BILIRUBIN,URINE NEGATIVE (NEGATIVE); COLOR,URINE YELLOW; GLUCOSE, URINE NEGATIVE (NEGATIVE); KETONES,URINE NEGATIVE (NEGATIVE); LEUKOCYTE ESTERASE,URINE NEGATIVE (NEGATIVE); NITRITE,URINE NEGATIVE (NEGATIVE); PROTEIN,URINE NEGATIVE (NEGATIVE); URINE SPECIFIC GRAVITY 1.021; UROBILINOGEN,URINE NEGATIVE mg/dL (<2.0)
[2020-03-14 07:37] LABS: ALBUMIN 4.7 g/dL (3.5-5.0); ALKALINE PHOSPHATASE 57 U/L (38-126); ANION GAP 10 (5-19); ASPARTATE AMINO TRANSFERASE 79 U/L (17-59); BILIRUBIN,TOTAL 0.4 mg/dL (0.2-1.3); BLOOD UREA NITROGEN 19 mg/dL (7-20); CARBON DIOXIDE 24 mmol/L (22-30); CHLORIDE 104 mmol/L (98-107); GLUCOSE 111 mg/dL (75-110); POTASSIUM 4.5 mmol/L (3.6-5.0); TOTAL PROTEIN 7.9 g/dL (6.3-8.2)
[2020-03-14 08:20] LABS: INTERNATIONAL RATION (INR) 0.93; PROTHROMBIN TIME 12.7 SEC (11.4-15.4)
--- NOTE | 2020-03-14 09:04 | ER Document Report ---
Entered by JONNIE THRASHER SCRIBE 03/14/20 0820 Acting as scribe for:MEGAN MOONEY MD ED GI/ - General Chief Complaint: Abdominal Pain Stated Complaint: ALTERED MENTAL STATUS Time Seen by Provider: 03/14/20 07:31 Information source: Patient Notes: This 59 year old male patient with an extensive history of alcohol abuse presents to the emergency department today with complaints of upper abdominal pain which began last night at 6:00 PM. He reports his last drink was a glass of wine yesterday afternoon at around 4:00 PM. He reports that he was nauseated but received Zofran from EMS which did help his nausea. He has not vomited. He had a normal bowel movement today. He mentions a 15 pound weight loss over the past 4-6 weeks and he states his stomach is swollen. TRAVEL OUTSIDE OF THE [place] IN LAST 30 DAYS: No - Related Data Allergies/Adverse Reactions: Penicillins Allergy (Unknown, Verified 07/30/19 09:51) Unknown reaction Home Medications: Synthroid, Effexor, Flax seed, Benadryl Past Medical History - General Information source: Patient - Social History Smoking Status: Current Every Day Smoker Cigarette use (# per day): Yes - 1 ppd Frequency of alcohol use: Heavy Drug Abuse: None Family History: Reviewed & Not Pertinent, CAD - Father with [place] at 86 years old. Patient has homicidal ideation: No Pulmonary Medical History: Reports: Hx Bronchitis Neurological Medical History: Reports: Hx Seizures - From alcohol abuse from DTs Endocrine Medical History: Reports: Hx Hypothyroidism GI Medical History: Reports: Hx Gastroesophageal Reflux Disease, Hx Pancreatitis - 09/15, Hx Ulcer Musculoskeletal Medical History: Psychiatric Medical History: Reports: Hx Anxiety, Hx Depression Traumatic Medical History: Reports: Hx Fractures Past Surgical History: Reports: Hx Appendectomy - 1974 - Immunizations Hx Diphtheria, Pertussis, Tetanus Vaccination: Yes Review of Systems - Review of Systems Constitutional: See HPI, Weight gain - 15 pounds in the last 4-6 weeks EENT: No symptoms reported Cardiovascular: No symptoms reported Respiratory: No symptoms reported Gastrointestinal: See HPI, Abdomen distended, Abdominal pain, Nausea. denies: Vomiting, Constipation, Black stools Genitourinary: No symptoms reported Male Genitourinary: No symptoms reported Musculoskeletal: No symptoms reported Skin: No symptoms reported Hematologic/Lymphatic: No symptoms reported Neurological/Psychological: No symptoms reported -: Yes All other systems reviewed and negative Physical Exam - Vital signs Vitals: Temp Pulse Resp BP Pulse Ox 97.6 F 83 17 149/103 H 96 03/14/20 01:23 03/14/20 01:23 03/14/20 01:03/14/20 01:03/14/20 01:23 - Notes Notes: Physical Exam: General: Alert, faint smell of EtOH. HEENT: Normocephalic. Atraumatic. PERRL. Extraocular movements intact. Oropharynx clear. Neck: Supple. Non-tender. Respiratory: No respiratory distress. Clear and equal breath sounds bilaterally. Cardiovascular: Regular rate and rhythm. Abdominal: Dull to percuss. Upper abdominal tenderness to palpation. Mild distension. Normal Bowel Sounds. Back: No gross abnormalities. Extremities: Moves all four extremities. Upper extremities: Normal inspection. Normal ROM. Lower extremities: Normal inspection. No edema. Normal ROM. Neurological: Normal cognition. AAOx4. Normal speech. Psychological: Normal affect. Normal Mood. Skin: Warm. Dry. Normal color. Course - Re-evaluation Re-evalutation: 03/14/20 10:14 Patient was resting comfortably, and seemed to be sleeping when I went to check on him. This was after he is gotten a GI cocktail. His alcohol level about 7 AM was 111, this would mean that when he got here about 1 AM it was 230 or higher. He claims he just had a couple glasses of wine before he took the nap and woke up with the epigastric discomfort. This is consistent with all my previous experiences with this patient who has a severe alcohol abuse and alcohol dependency problem. The ultrasound did not show ascites, so his increasing abdominal girth and increasing weight is most likely due to excessive caloric intake. - Vital Signs Vital signs: Temp Pulse Resp BP Pulse Ox 97.6 F 83 17 149/103 H 96 03/14/20 01:23 03/14/20 01:23 03/14/20 01:23 03/14/20 01:23 03/14/20 01:23 - Laboratory Result Diagrams: 03/14/20 06:52 03/14/20 06:52 Laboratory results interpreted by me: 03/14/20 03/14/20 06:52 06:52 RBC 4.27 L MCV 100 H MCH 33.8 H RDW 14.5 H Glucose 111 H AST 79 H ALT 79 H - Diagnostic Test Radiology reviewed: Image reviewed, Reports reviewed - Abdominal ultrasound did not show acute processes. There was no ascites. Discharge - Discharge Clinical Impression: GERD (gastroesophageal reflux disease) Qualifiers: Esophagitis presence: esophagitis presence not specified Qualified Code(s): K21.9 - Gastro-esophageal reflux disease without esophagitis Alcohol intoxication Qualifiers: Complication of substance-induced condition: uncomplicated Qualified Code(s): F10.920 - Alcohol use, unspecified with intoxication, uncomplicated Condition: Stable Disposition: HOME, SELF-CARE Additional Instructions: Reflux Disease (GERD) Gastro-Esophageal Reflux Disease (GERD) is caused by stomach acid refluxing back up into the esophagus. The valve at the end of the esophagus may be weak. This is common in persons with a hiatal hernia. GERD symptoms can include indigestion, chest pain, heartburn, or food "sticking." Certain foods, alcohol, and aspirin can make GERD worse. Treatment depends on the severity. Usually, antacids or acid-suppressing medicines are used. When the esophagus is acutely inflamed, the physician will often prescribe membrane-protective drugs such as Carafate. Some patients benefit from medication such as Reglan that tightens the valve at the top of the stomach. Avoid those foods that bring on your symptoms. For many people, these foods are coffee, chocolate, onions, garlic, and carbonated drinks. Don't use alcohol, aspirin, caffeine, or tobacco. Don't eat late at night -- within 4 hours of bedtime. Don't over-eat. If necessary, elevate the head of your bed about 4 inches so that stomach acid will not roll up into your esophagus. Call the doctor if you develop severe chest pain, inability to swallow fluids, fever, or worsening symptoms. Acute Alcohol Intoxication Your evaluation revealed very high levels of alcohol. You can from drinking a large amount of alcohol rapidly! Further, there's the risk of falls, traffic accidents, and fights. A high portion (about 50 percent) of the serious injuries seen in hospital emergency rooms are caused by alcohol. Alcohol overdosage is usually due to an underlying emotional or psychiatric problem. You may benefit from counselling. If "binge" drinking is an ongoing problem for you, or if you drink ANY AMOUNT of alcohol EVERY day, you most likely have a tendency to alcoholism. You should avoid alcohol totally. We can refer you for treatment. Persons with alcohol problems are often also prone to other addictions -- you should discuss any use of medications or drugs with the doctor. You should be watched at home for the next several hours by someone who has not been drinking. Get extra fluids for the next 24 hours. Call the doctor if there is repeated vomiting, increasing headache, decreasing level of alertness, or any other worsening. Your epigastric abdominal pain you are experiencing yesterday evening and today is most likely due to acid reflux. This is a common problem and it is always made much worse with excessive alcohol consumption. Take antacids for the epigastric discomfort and try to stop eating and drinking things that make heartburn worse. Follow-up with your primary care provider if not improving. RETURN TO THE EMERGENCY ROOM IF ANY NEW OR WORSENING SYMPTOMS. I personally performed the services described in the documentation, reviewed and edited the documentation which was dictated to the scribe in my presence, and it accurately records my words and actions.
[2020-03-14] MEDS ORDERED: LIDOCAINE 2% VISCOUS SOLN 15 ML UDCUP PO ONE (09:16)
[2020-03-14] MEDS ORDERED: MAG HYDROX/AL HYDROX/SIMETH SUSP 30 ML UDCUP PO ONE (09:16)
--- NOTE | 2020-03-14 09:33 | RADIOLOGY REPORT (SQ) ---
EXAM DESCRIPTION: U/S ABDOMEN COMPLETE W/O DOP IMAGES COMPLETED DATE/TIME: 03/14/2020 9:09 am REASON FOR STUDY: Epigastric pain, new ascites,chronic alcohol abuse COMPARISON: 01/21/2011. TECHNIQUE: Dynamic and static grayscale images acquired of the abdomen and recorded on PACS. Additio nal selected color Doppler and spectral images recorded. Note: Study does not meet criteria for a complete doppler/duplex scan LIMITATIONS: None. FINDINGS: PANCREAS: No masses. Visualized pancreatic duct normal caliber. LIVER: Echotexture is coarse with increased echogenicity consistent with fatty infiltration. LIVER VASCULATURE: Normal directional flow of the main portal vein and hepatic veins. GALLBLADDER: No stones. Normal wall thickness. No pericholecystic fluid. ULTRASOUND-DETECTED STAPLES'S SIGN: Negative. INTRAHEPATIC DUCTS AND COMMON DUCT: CBD and intrahepatic ducts normal caliber. No filling defects. INFERIOR VENA CAVA: Normal flow. AORTA: No aneurysm. RIGHT KIDNEY: Normal size. Normal echogenicity. No solid or suspicious masses. No hydronephrosis. No calcifications. LEFT KIDNEY: Normal size. Normal echogenicity. No solid or suspicious masses. No hydronephrosis. No calcifications. SPLEEN:Obscured by overlying bowel gas. PERITONEAL AND PLEURAL SPACES: No ascites or effusions. OTHER: No other significant finding. IMPRESSION: FATTY LIVER. NO OTHER SIGNIFICANT FINDING. TECHNICAL DOCUMENTATION: JOB ID: [id number] [employer]- All Rights Reserved Reading location - IP/workstation name: [email or web address]
[2020-03-14 10:34] VITALS: BP 163/101
== END 2020-03-14 10:43 | disposition home or self-care (01) ==
LOC: ER 01:13
DX: R41.82 Altered mental status, unspecified (principal); F10.920 Alcohol use, unspecified with intoxication, uncomplicated; K21.9 Gastro-esophageal reflux disease without esophagitis; R63.5 Abnormal weight gain; F17.210 Nicotine dependence, cigarettes, uncomplicated; Z88.0 Allergy status to penicillin
CPT/HCPCS: 99284; 36415; 80307; 83690; 85025; 85610; 80053; 81001; 76700; J3490

== ENCOUNTER 2020-04-27 19:58 | Emergency (ER) | payer SELFPAY ==
[2020-04-27 21:06] LABS: ABSOLUTE EOSINOPHILS # (AUTO) 0.2 10^3/uL (0.0-0.6); ABSOLUTE LYMPHOCYTES (AUTO) 1.9 10^3/uL (0.5-4.7); ABSOLUTE MONOCYTES (AUTO) 0.4 10^3/uL (0.1-1.4); ABSOLUTE NEUT (AUTO) 2.4 10^3/uL (1.7-8.2); BASOPHILS % (AUTO) 0.8 % (0-2); EOSINOPHILS % (AUTO) 3.1 % (0-6); HEMATOCRIT 38.3 % (37.9-51.0); HEMOGLOBIN 13.1 g/dL (13.5-17.0); LYMPHOCYTES % (AUTO) 39.6 % (13-45); MEAN CORPUSCULAR HEMOGLOBIN 33.4 pg (27.0-33.4); MEAN CORPUSCULAR VOLUME 98 fl (80-97); MONOCYTES % (AUTO) 7.8 % (3-13); PLATELET COUNT 221 10^3/uL (150-450); RED CELL DISTRIBUTION WIDTH 13.7 % (11.5-14.0); SEGMENTED NEUTROPHILS % (AUTO) 48.7 % (42-78); TOTAL CELLS COUNTED % (AUTO) 100 %; WHITE BLOOD COUNT 4.9 10^3/uL (4.0-10.5)
[2020-04-27 21:12] LABS: ALBUMIN 4.3 g/dL (3.5-5.0); ALKALINE PHOSPHATASE 76 U/L (38-126); ANION GAP 14 (5-19); ASPARTATE AMINO TRANSFERASE 44 U/L (17-59); BILIRUBIN,DIRECT 0.3 mg/dL (0.0-0.4); BILIRUBIN,TOTAL 0.3 mg/dL (0.2-1.3); BLOOD UREA NITROGEN 12 mg/dL (7-20); CALCIUM 9.4 mg/dL (8.4-10.2); CARBON DIOXIDE 22 mmol/L (22-30); CHLORIDE 102 mmol/L (98-107); CREATINE KINASE 121 U/L (55-170); GLUCOSE 102 mg/dL (75-110); POTASSIUM 4.5 mmol/L (3.6-5.0); TOTAL PROTEIN 7.5 g/dL (6.3-8.2)
[2020-04-27] MEDS ORDERED: MORPHINE SULFATE 10 MG/ML INJ IV ONE (21:21)
--- NOTE | 2020-04-27 21:21 | ER Document Report ---
ED General - General Chief Complaint: Chest Pain Stated Complaint: CHEST PAIN,HEADACHE Time Seen by Provider: 04/27/20 20:59 Primary Care Provider: ERUM ELLIS MD [ACTIVE STAFF] - 05/01/20 Notes: Patient is a 59-year-old male that comes emergency department for chief complaint of chest pain headache. He states that chest pain started on Friday (4 days ago), he states it is in the center of his chest, feels like a sharp stabbing pain, he states that on Friday he got nauseated and he vomited a couple of times although he has not vomited since then he has been able to eat without difficulty since that time. He denies hematemesis. He denies cough or fever. In route by EMS patient was given 324 mg of aspirin, 2 sublingual nitroglycerin, and 100 mcg of fentanyl. After this symptoms completely resolved. Patient denies focal numbness or weakness, head injury, or any other complaints at this time although he states that the medication is starting to wear off and he is starting to feel both pains again to some degree. Patient has a history of alcohol abuse, has been off of alcohol for years now reported ly, takes Klonopin 1 mg twice a day, Wellbutrin, denies any other current medications. He smokes, denies recreational drugs. He states he does not feel like he has reflux. TRAVEL OUTSIDE OF THE [place] IN LAST 30 DAYS: No - Related Data Allergies/Adverse Reactions: Penicillins Allergy (Unknown, Verified 07/30/19 09:51) Unknown reaction Past Medical History - General Information source: Patient - Social History Smoking Status: Current Every Day Smoker Smoking Education Provided: Yes - <3 min Frequency of alcohol use: None Drug Abuse: None Lives with: Family Family History: Reviewed & Not Pertinent, CAD - Father with [place] at 86 years old. Pulmonary Medical History: Reports: Hx Bronchitis Neurological Medical History: Reports: Hx Seizures - From alcohol abuse from DTs Endocrine Medical History: Reports: Hx Hypothyroidism Renal/ Medical History: Denies: Hx Peritoneal Dialysis GI Medical History: Reports: Hx Gastroesophageal Reflux Disease, Hx Pancreatitis - 09/15, Hx Ulcer Musculoskeletal Medical History: Psychiatric Medical History: Reports: Hx Anxiety, Hx Depression Traumatic Medical History: Reports: Hx Fractures Past Surgical History: Reports: Hx Appendectomy - 1974 - Immunizations Hx Diphtheria, Pertussis, Tetanus Vaccination: Yes Review of Systems - Review of Systems Constitutional: No symptoms reported EENT: No symptoms reported Cardiovascular: See HPI Respiratory: No symptoms reported Gastrointestinal: See HPI Genitourinary: No symptoms reported Male Genitourinary: No symptoms reported Musculoskeletal: No symptoms reported Skin: No symptoms reported Hematologic/Lymphatic: No symptoms reported Neurological/Psychological: No symptoms reported Physical Exam - Vital signs Vitals: Temp 98.1 F 04/27/20 19:58 - Notes Notes: GENERAL: Alert, interacts well. No acute distress. HEAD: Normocephalic, atraumatic. EYES: Pupils equal, round, and reactive to light. Extraocular movements intact. ENT: Oral mucosa moist, tongue midline. Oropharynx unremarkable. Airway patent. NECK: Full range of motion. Supple. Trachea midline. No lymphadenopathy. LUNGS: Clear to auscultation bilaterally, no wheezes, rales, or rhonchi. No respiratory distress. Non-tender chest wall. HEART: Regular rate and rhythm. No murmur ABDOMEN: Soft, non-tender. Non-distended. EXTREMITIES: Moves all 4 extremities spontaneously. No edema, normal radial and dorsalis pedis pulses bilaterally. No cyanosis. BACK: no cervical, thoracic, lumbar midline tenderness. No saddle anesthesia, normal distal neurovascular exam. Moves all extremities in full range of motion. NEUROLOGICAL: Alert and oriented x3. Normal speech. Cranial nerves II through XII grossly intact. Strength 5/5 in all extremities. PSYCH: Normal affect, normal mood. SKIN: Warm, dry, normal turgor. No rashes or lesions noted. Course - Re-evaluation Re-evalutation: Patient with mid to lower chest pain/upper abdominal pain although abdomen is unremarkable on exam. He is reporting pain is returning, pending work-up patient was given pain medication and nausea medication. CBC, chemistry, lipase unremarkable, troponin negative, EKG unremarkable, chest x-ray unremarkable. Patient started having symptoms again, he was given GI cocktail with good results. Patient has heart score less than 3, based on his resolution, history, evaluation I have a low suspicion of ACS. Most likely this is esophageal spasm/gastritis specially with patient's current tobacco abuse, recent and discovered current alcohol use. Troponin cycled and negative. Discussed details with patient. Discussed care, follow-up, return cautions. Discussed alcohol/smoking cessation. Patient states understanding and agreement. Stable and well-appearing at time of discharge. - Vital Signs Vital signs: Temp Pulse Resp BP Pulse Ox 98.1 F 19 115/87 H 96 04/27/20 19:58 04/28/20 03:05 04/28/20 03:05 04/28/20 03:05 - Laboratory Result Diagrams: 04/27/20 20:26 04/27/20 20:26 Laboratory results interpreted by me: 04/27/20 04/27/20 20:26 20:26 RBC 3.90 L Hgb 13.1 L MCV 98 H ALT 69 H - EKG Interpretation by Me Additional EKG results interpreted by me: EKG shows sinus rhythm at a rate of 94, QTc of 421, borderline left axis deviation, no T wave inversions or ST segment changes in consecutive leads. Machine reads as normal. Discharge - Discharge Clinical Impression: Chest pain Qualifiers: Chest pain type: unspecified Qualified Code(s): R07.9 - Chest pain, unspecified Condition: Stable Disposition: HOME, SELF-CARE Additional Instructions: Your work-up does not show any concerning findings at this time. Your evaluation is most consistent with esophageal spasm. Take Phenergan for nausea, take Carafate and Pepcid as prescribed to help treat this, you can take additional Rolaids, Tums, Maalox, etc. if needed. You can take Tylenol for pain. Avoid NSAIDs, alcohol, smoking, caffeine, spicy food. Start with clear fluids, progress to bland diet. Call the gastroenterology referral listed for close follow-up and additional management. Return if you worsen including uncontrolled vomiting, vomiting bl ood, black stools, severe pain, fever of 100.4 or greater, or any other concerning or worsening symptoms. Prescriptions: Sucralfate [Carafate 1 gm Tablet] 1 gm PO QID #20 tablet Famotidine [Pepcid 20 mg Tablet] 20 mg PO BID #20 tablet Promethazine HCl [Phenergan 25 mg Tablet] 25 mg PO Q6H PRN #15 tablet PRN Reason: Referrals: ERUM ELLIS MD [ACTIVE STAFF] - 05/01/20
[2020-04-27] MEDS ORDERED: ONDANSETRON HCL INJ/PF 4 MG/2 ML SDV IV ONE (21:22)
[2020-04-27 21:24] LABS: CREATINE KINASE MB 0.83 ng/mL (<4.55)
[2020-04-27 21:32] LABS: TROPONIN I < 0.012 ng/mL
--- NOTE | 2020-04-27 21:38 | RADIOLOGY REPORT (SQ) ---
EXAM DESCRIPTION: XR CHEST 2 VIEWS COMPLETED DATE/TME: 04/27/2020 00:00 CLINICAL HISTORY: 59 years, Male, chest pain COMPARISON: Prior study from 01/24/2020 NUMBER OF VIEWS: 2 TECHNIQUE: Frontal and lateral radiograph are obtained LIMITATIONS: None. FINDINGS: Cardiac and mediastinal contours are stable. Suture line projects over the medial aspect of the right upper lung zone. Lungs are otherwise clear. No pleural effusion or pneumothorax. IMPRESSION: No acute disease. copyright 2010 [employer]- All Rights Reserved
[2020-04-27] MEDS ORDERED: MAG HYDROX/AL HYDROX/SIMETH SUSP 30 ML UDCUP PO ONE (22:30)
[2020-04-27] MEDS ORDERED: LIDOCAINE 2% VISCOUS SOLN 15 ML UDCUP PO ONE (22:30)
[2020-04-27] MEDS ORDERED: METOCLOPRAMIDE HCL ORAL SOLN 10 MG/10 ML UDCUP PO ONE (22:30)
[2020-04-28] MEDS ORDERED: SUCRALFATE 1 GM TABLET PO ONE (02:50)
[2020-04-28 03:09] VITALS: BP 115/87
--- NOTE | 2020-04-28 21:35 | EKG REPORT ---
SEVERITY:- NORMAL ECG - SINUS RHYTHM : Confirmed by: Beth Boykin MD 28-Apr-2020 21:34:26
== END 2020-04-28 03:29 | disposition home or self-care (01) ==
LOC: ER 19:58
DX: R07.9 Chest pain, unspecified (principal); R10.10 Upper abdominal pain, unspecified; R51 Headache; F17.200 Nicotine dependence, unspecified, uncomplicated; F41.9 Anxiety disorder, unspecified; F32.9 Major depressive disorder, single episode, unspecified; Z79.899 Other long term (current) drug therapy; Z88.0 Allergy status to penicillin; Z82.49 Family history of ischemic heart disease and other diseases of the circulatory system
CPT/HCPCS: 93005; 99285; 96374; 96375; 36415; 82553; 80307; 82550; 83690; 85025; 80053; 84484; 71046; 93010; J3490; J2270; J2405